=== PATIENT | female | born 1990 | race Caucasian/White ===

== ENCOUNTER → 2018-01-27 | Outpatient (CLI) | payer MEDICAID ==
[~2018-01-27] MED LIST: BIRTH CONTROL PO; CLIN-62 PO; DOXY100C2 PO; HYDR-707 PO; PARO20TA57 PO
--- NOTE | 2018-01-27 11:47 | Diagnostic Imaging Report ---
INDICATION: survey. TECHNIQUE: Multiple real-time grayscale images were obtained over the gravid uterus. COMPARISON: None FINDINGS: There is a single live fetus in a cephalic presentation. The placenta is posterior. The amniotic fluid volume is normal. heart rate was recorded at 152 beats per minute. survey demonstrates kidneys, bladder and stomach to be unremarkable. Intracranial structures are unremarkable. There is a three-vessel cord with normal cord insertion. The spine is unremarkable. Biometrical measurements are as follows: Biparietal 4.4 cm, age 19 weeks 3 days. Head circumference 15.9 cm, age 18 weeks 6 days. Abdominal circumference 14.3 cm, age 19 weeks 5 days. Femur length 3.1 cm, age 19 weeks 4 days. Sonographic estimate age: 19 weeks 3 days. Sonographic estimated date of delivery: 06/20/18. Estimated Weight: 295 gm (+/- 43 gm). LMP percentile: 32%. heart rate: 152 beats per minute. number: 1 of 1. IMPRESSION: Single live IUP approximately 19 weeks 3 days gestational age. The estimated date of confinement sonographically is 06/20/2018. Dictated by: Dictated on workstation # [id number]
== END ==
LOC: RAD 09:46
PROVIDERS: ATTEND Obstetrics & Gynecology
DX: Z36.89 Encounter for other specified antenatal screening (principal); Z3A.19 19 weeks gestation of pregnancy
CPT/HCPCS: 76805

== ENCOUNTER 2018-06-02 20:24 | Inpatient (IN) | payer MEDICAID ==
[~2018-06-02] VITALS: Ht 167.6 cm; Wt 68.9 kg
[2018-06-02] VITALS (13 sets, daily range): BP systolic 124–153; BP diastolic 63–85
[2018-06-02 20:50] LABS: BILIRUBIN,URINE NEGATIVE (NEGATIVE); CLARITY,URINE SLIGHTLY CLOUDY; COLOR,URINE YELLOW; GLUCOSE, URINE (UA) NEGATIVE (NEGATIVE); KETONES,URINE NEGATIVE (NEGATIVE); LEUKOCYTE ESTERASE ,URINE 3+ (NEGATIVE); NITRITE,URINE NEGATIVE (NEGATIVE); PH,URINE 7 (5-9); PROTEIN,URINE NEGATIVE (NEGATIVE); UROBILINOGEN,URINE NORMAL (NORMAL)
[2018-06-02 21:01] LABS: BACTERIA,URINE TRACE /HPF
[2018-06-02] MEDS ORDERED: OXYTOCIN/NORMAL SALINE 500 ML IV ONE (21:19)
[2018-06-02] MEDS ORDERED: LIDOCAINE/EPI 2% 1:200,00 (XYLOCAINE) 10 ML VIAL ONE (21:19)
[2018-06-02] MEDS ORDERED: D5 LR IV SOLUTION 1,000 ML IV ONE (21:19)
[2018-06-02] MEDS ORDERED: D5 LR IV SOLUTION 1,000 ML IV SCH (21:22)
[2018-06-02] MEDS ORDERED: SUFENTA 0.6MCG/ML BUPIVA 0.125 100 ML ONE (21:26)
[2018-06-02 21:48] LABS: BASOPHILS % (AUTO) 0 % (0-10); EOSINOPHILS # (AUTO) 0.1 10^3/uL (0.0-0.3); EOSINOPHILS % (AUTO) 1 % (0-10); HEMATOCRIT 34 % (35-52); HEMOGLOBIN 11.7 G/DL (11.5-16.0); LYMPHOCYTES % (AUTO) 14 % (12-44); MEAN CORPUSCULAR HEMOGLOBIN 31 PG (25-34); MEAN CORPUSCULAR HGB CONC 35 G/DL (32-36); MEAN CORPUSCULAR VOLUME 89 FL (80-99); MEAN PLATELET VOLUME 12.2 FL (7.4-10.4); MONOCYTES # (AUTO) 1.2 X 10^3 (0.0-1.0); MONOCYTES % (AUTO) 8 % (0-12); NEUTROPHILS # (AUTO) 11.3 X 10^3 (1.8-7.8); NEUTROPHILS % (AUTO) 77 % (42-75); PLATELET COUNT 208 10^3/uL (130-400); RED BLOOD COUNT 3.79 10^6/uL (4.35-5.85); RED CELL DISTRIBUTION WIDTH 12.5 % (10.0-14.5); WHITE BLOOD COUNT 14.7 10^3/uL (4.3-11.0)
[2018-06-02] MEDS ORDERED: fentaNYL INJECTION 100 MCG/2 ML AMP ONE (22:00)
[2018-06-02] MEDS ORDERED: LIDOCAINE PF 2% 5 ML (XYLOCAINE) VIAL ONE (22:00)
[2018-06-02] MEDS ORDERED: CATHETER FLUSH 10 ML SYR IV SCH (22:00)
[2018-06-02 22:12] LABS: BAND NEUTROPHILS 13 %; LYMPHOCYTES % (MANUAL) 5 %; NEUTROPHILS % (MANUAL) 81 %; RBC MORPH NORMAL
--- NOTE | 2018-06-02 22:13 | History & Physical-OB ---
OB - Chief Complaint & HPI Date/Time Date of Admission: Date of Admission: 06/02/2018 Time Seen by Provider: 22:30 Chief Complaint/History OB-Reason for Admission/Chief: Onset of Labor Hx : 4 Hx Para: 2 Expected Date of Delivery: Jun 18, 2018 Gestational Age in Weeks: 37 Gestational Age in Days: 5 Admission Nurse Assessment Rev: Yes History of Labs A pos Antibody neg RI RPR NR HBsAg NR HIV NR GC neg GBS neg Allergies and Home Medications Allergies Coded Allergies: No Known Drug Allergies (Verified , 11/11/07) Patient Home Medication List Home Medication List Reviewed: Yes OB - History Hx of Present Care: Yes Ultrasounds: Normal mid trimester US Obstetrical Complications: None Medical Complications: None Obstetrical History Hx : 4 Hx Para: 2 Hx Total # of Abortions (Spona: 1 Delivery History Hx Blood Disorders: No Patient Past Medical History n/a Social History/Family History Recent Infectious Disease Expo: No Immunizations Tetanus Booster (TDap): Less than 5yrs OB - Admission Exam Physical Exam HEENT: NCAT Heart: Rhythm Normal Lungs: Clear Abdomen: Gravid Extremities: Normal Reflexes: Normal Cervical Dilatation: 6cm Effacement: 75% Station: -1 Membranes: Intact Heart Rate: 130's Accelerations: Accelerations Present Decelerations: No Decelerations Short Term Variability: Present Director Strategic Planning Variability: Average (6-25) Contractions on Admission: < 5 Minutes Apart Intensity: Moderate Labs Laboratory Tests Test 06/02/18 20:40 06/02/18 21:35 Range/Units Urine Color YELLOW Urine Clarity SLIGHTLY CLOUDY Urine pH 7 5-9 Urine Specific [place] 1.015 L 1.016-1.022 Urine Protein NEGATIVE NEGATIVE Urine Glucose (UA) NEGATIVE NEGATIVE Urine Ketones NEGATIVE NEGATIVE Urine Nitrite NEGATIVE NEGATIVE Urine Bilirubin NEGATIVE NEGATIVE Urine Urobilinogen NORMAL NORMAL MG/DL Urine Leukocyte Esterase 3+ H NEGATIVE Urine RBC (Auto) 5+ H NEGATIVE Urine RBC 2-5 H /HPF Urine WBC 10-25 H /HPF Urine Squamous Epithelial Cells 2-5 /HPF Urine Crystals NONE /LPF Urine Bacteria TRACE /HPF Urine Casts NONE /LPF Urine Mucus SMALL H /LPF Urine Culture Indicated YES White Blood Count 14.7 H 4.3-11.0 10^3/uL Red Blood Count 3.79 L 4.35-5.85 10^6/uL Hemoglobin 11.7 11.5-16.0 G/DL Hematocrit 34 L 35-52 % Mean Corpuscular Volume 89 80-99 FL Mean Corpuscular Hemoglobin 31 25-34 PG Mean Corpuscular Hemoglobin Concent 35 32-36 G/DL Red Cell Distribution Width 12.5 10.0-14.5 % Platelet Count 208 130-400 10^3/uL Mean Platelet Volume 12.2 H 7.4-10.4 FL Neutrophils (%) (Auto) 77 H 42-75 % Lymphocytes (%) (Auto) 14 12-44 % Monocytes (%) (Auto) 8 0-12 % Eosinophils (%) (Auto) 1 0-10 % Basophils (%) (Auto) 0 0-10 % Neutrophils # (Auto) 11.3 H 1.8-7.8 X 10^3 Lymphocytes # (Auto) 2.0 1.0-4.0 X 10^3 Monocytes # (Auto) 1.2 H 0.0-1.0 X 10^3 Eosinophils # (Auto) 0.1 0.0-0.3 10^3/uL Basophils # (Auto) 0.0 0.0-0.1 10^3/uL OB - Assessment/Plan/Diagnosis Assessment Assessment: active labor Admission Dx 28 yo @ 37.5 Active labor GBS neg Admission Status: Inpatient Order (span 2 midnights) Reason for Inpatient Admission: Active labor term Plan Plan: Expectant Management POLLY ROSALES DO Jun 02, 2018 10:13 pm
[2018-06-02] MEDS ORDERED: LACTATED RINGERS 1,000 ML IV SCH (22:47)
[2018-06-02] MEDS ORDERED: BUPIVACAINE 0.25% 30 ML (SENSORCAINE) VIAL ONE (22:50)
[2018-06-02] MEDS ORDERED: NALOXONE 0.4 MG/ML 1 ML (NARCAN) VIAL IV PRN (23:00)
[2018-06-02] MEDS ORDERED: diphenhydrAMINE 50 MG/ML INJ (BENADRYL) IV PRN (23:00)
[2018-06-02] MEDS ORDERED: EPIDURAL (SUFENTA 0.6MCG/ML BUPIVA 0.125%) 100 ML BAG EPI PRN (23:00)
[2018-06-02] MEDS ORDERED: ONDANSETRON 4 MG/2 ML (SDV) Z0FRAN IV PRN (23:00)
[2018-06-03] VITALS (13 sets, daily range): BP systolic 113–155; BP diastolic 63–93
[2018-06-03] MEDS ORDERED: OXYTOCIN/NORMAL SALINE 500 ML IV SCH (00:07)
--- NOTE | 2018-06-03 00:12 | OB Labor & Delivery Record ---
L&D History Date of Service Date of Service: Jun 03, 2018 History Expected Date of Delivery: Jun 18, 2018 Gestational Age in Weeks: 37 Hx : 4 Hx Para: 2 Complications Events: Routine care Operative Indications (Cesarea: N/A-Vaginal Delivery Intrapartal Events: None L&D Stage1 Stage One Onset of Labor - Date: Jun 02, 2018 Monitors and Tracing Monitor Mode: External Heart Rate: 135 Station: -2 Vital Signs VS - Last 72 Hours, by Label 06/02/18 06/02/18 06/02/18 21:00 22:00 22:45 Temp 98.4 Pulse 82 87 Resp 18 18 18 B/P (MAP) 143/85 (104) 139/82 (101) 136/68 (90) Pulse Ox 98 O2 Delivery Room Air Room Air Room Air Rupture of Membranes Spontaneous Ruture of Membrane: No Amniotic Membrane Rupture Time: 2243 Amniotic Membrane Fluid Desc.: Clear Vaginal Bleeding Description: Normal Show Induction/Anesthesia Epidural Cath Placement - Time: 2234 Progress/Notes progressed without any augmentation other than AROM to complete and + 2 station L&D Stage2 Stage Two Stage II Date: Jun 03, 2018 Monitors and Tracing Monitor Mode: External Heart Rate: 135 Monitor Accelerations: Uniform Monitor Decelerations: Early Transplanter [place]chid Variability: Average (6-10) Short Term Variability: Present Position: Right Occiput Anterior Presentation: Vertex Cord Descript/Complications Cord Vessel Description: 3 Vessels Delivery Type Delivery Method: Spontaneous Vaginal Anterior Shoulder: Left Episiotomy/Perineal Laceration Laceraction(s)/Extensions: Yes Degree (describe repair) bilateral periurethral lacerations repaired using 3-0 rapide in usual fashion Condition of Delivery 1 minute Comment: 9 5 minute Comment: 9 Condition of Infant Condition of : Living Exam: No Observed Abnormalities live male infant weight pending Resuscitation Resuscitation: N/A - Spontaneous Resp L&D Stage3 Stage Three Stage III Date: Jun 03, 2018 Pictocin Pitocin Administration Comment: 30 mu wide open at delivery of placenta Placenta Delivery Placenta Delivery: Spontaneous Delivery Summary Summary Estimated blood loss (mL): 350 Attending at delivery: Polly Rosales DO Condition of Delivery Examined: Cervix Examined, Uterus Explored Post Hemorrhage: No Condition of Mother stable Condition of (s) stable POLLY ROSALES DO Jun 03, 2018 00:12
--- NOTE | 2018-06-03 00:12 | Discharge Inst-Women's Service ---
Discharge Inst-Women's Serv Depart Medication/Instructions New, Converted or Re-Newed RX: RX on Chart Consults/Follow Up Additional Follow Up: Yes Activity Activity: Activity as Tolerated Driving Instructions: No Driving for 1 Week NO SMOKING: NO SMOKING Nothing Inside Vagina: No Douching, No [place], No Tampons Diet Discharge Diet: No Restrictions Symptoms to Report to : Bleeding Excessive, Pain Increased, Fever Over 101 Degrees F, Vaginal Bleeding Increase, Questions/Concerns For Any Problems or Questions: Contact Your Physician Skin/Wound Care Bathing Instructions: POLLY Recio DO Jun 03, 2018 00:12
[2018-06-03] MEDS ORDERED: DOCU100C37 PO (00:14)
[2018-06-03] MEDS ORDERED: PNV1TABL67 PO (00:14)
[2018-06-03] MEDS ORDERED: DIBU30OI TOP (00:14)
[2018-06-03] MEDS ORDERED: IBUP-844 PO (00:14)
[2018-06-03] MEDS ORDERED: ACHD5005 PO (00:14)
[2018-06-03] MEDS ORDERED: DIBUCAINE (NUPERCAINAL) 1% OINT 30 GM TOP PRN (00:15)
[2018-06-03] MEDS ORDERED: BENZOCAINE/MENTHOL (DERMOPLAST) 56 ML CAN TP PRN (00:15)
[2018-06-03] MEDS ORDERED: HYDROcodone/APAP 5 MG/325 MG (LORTAB) TAB PO PRN (00:15)
[2018-06-03] MEDS ORDERED: WITCH HAZEL(TUCKS) 40 EA JAR TOP PRN (00:15)
[2018-06-03] MEDS ORDERED: TETANUS,DIPTH,PERTUSS P/F (BOOSTRIX) 0.5 ML VIAL IM ONE ×2 (00:15→15:31)
[2018-06-03] MEDS ORDERED: MEASLES,MUMPS,RUBELLA 1 EA INJ SQ ONE (00:15)
--- OUTSIDE RECORDS SUMMARY | 2018-06-03 00:42 | XMS REPORT | Continuity of Care Document ---
Author Author [facility] Organization [facility] Address Unknown Phone Unavailable Care Team Providers Care Granite Fabricator Name Role Phone JAS MADISON DO PP Insurance Providers Payer Name Policy Number Subscriber Name Relationship Self Pay Radha Diaz 01 Self / Same As Patient Advance Directives Directive Response Recorded Date Advance Directives N 06/27/13 2:20pm Health Care Power of Airset Molder N 06/27/13 2:20pm Organ Donor Y 06/27/13 2:20pm Problems No Known Problems or Medical conditions. Family History History Response Recorded Date/Time Hx Family Cancer Y GRANDMA, 02/01/11 4: 16pm Hx Family Breast Cancer Y STATES SEVERAL CASES 02/01/11 4:16pm Hx Family Cardiac Disorders N 02/01/11 4: 16pm Social History History Response Recorded Date/Time Alcohol Use Denies Use 06/27/13 2:20pm Recreational Drug Use Y POT 06/27/13 2: 20pm Allergies, Adverse Reactions, Alerts Allergen Type Severity Reaction Last Updated No Known Drug Allergies 11/11/07 Medications Medication Dose Units Route Sig Qty Days No Active Prescriptions or Reported Medications Doxycycline Hyclate 1 Each PO BID 6 Acetaminophen/Hydrocodone Bitart (Lortab 5-500 Tablet) 1 - 2 Each PO Q6HR PRN Response Recorded Date/Time Status not known Unknown Results Test Date Result Interp. Ref. Range Acetaminophen Screen June 03, 2009 11:40am NEGATIVE - BUN/Creatinine Ratio February 23, 2012 6:23am 10 - Band Neutrophils February 22, 2012 2:24am 6 % - Basophils # (Auto) February 23, 2012 6:23am 0.0 10^3/uL N 0.0-0.1 Basophils (%) (Auto) February 23, 2012 6:23am 0 % N 0-10 Blood Urea Nitrogen February 23, 2012 6:23am 5 MG/DL L 7-18 C-Reactive Protein February 03, 2011 6:17am 1.0 MG/DL H 0.2-0.9 Calcium Level February 23, 2012 6:23am 7.9 MG/DL L 8.5-10.1 Carbon Dioxide Level February 23, 2012 6:23am 22 MMOL/L N 21-32 Chlamydia DNA Probe February 22, 2012 5:25am NEG - Chlamydia/GC DNA Probe Source February 22, 2012 5:25am CERVIX - Chloride Level February 23, 2012 6:23am 102 MMOL/L N 101-110 Creatinine February 23, 2012 6:23am 0.5 MG/ DL L 0.6-1.3 Eosinophils # (Auto) February 23, 2012 6:23am 0.2 10^3/uL N 0.0-0.3 Eosinophils (%) (Auto) February 23, 2012 6:23am 1 % N 0-10 Erythrocyte Sedimentation Rate February 01, 2011 1:15pm 11 MM/HR N 0-20 Fasting Glucose May 18, 2009 10:27am 420 81 - Glucose 1 Hour May 18, 2009 10:27am 4380 184 - Glucose 1/2 Hour May 18, 2009 10:27am 2700 176 - Glucose 2 Hour May 18, 2009 10:27am 7680 159 - Glucose 3 Hour May 18, 2009 10:27am 87358 57 - Glucose Level February 23, 2012 6:23am 65 MG/DL L 74-106 Hematocrit February 23, 2012 6:23am 27 % L 35-52 Hemoglobin February 23, 2012 6:23am 9.1 G/ DL L 11.5-16.0 Human Chorionic Gonadotropin, Quant February 22, 2012 2:24am 46167 MIU/ML H -6 Lymphocytes # (Auto) February 23, 2012 6:23am 1.6 X 10^3 N 1.0-4.0 Lymphocytes % (Manual) February 22, 2012 2:24am 3 % - Lymphocytes (%) (Auto) February 23, 2012 6:23am 11 % L 12-44 Mean Corpuscular Hemoglobin February 23, 2012 6:23am 29 PG N 25-34 Mean Corpuscular Hemoglobin Concent February 23, 2012 6:23am 34 G/DL N 32-36 Mean Corpuscular Volume February 23, 2012 6:23am 88 FL N 80-99 Mean Platelet Volume February 23, 2012 6:23am 11.4 FL H 7.4-10.4 Monocytes # (Auto) February 23, 2012 6:23am 0.5 X 10^3 N 0.0-1.0 Monocytes % (Manual) February 22, 2012 2:24am 7 % - Monocytes (%) (Auto) February 23, 2012 6:23am 4 % N 0-12 Neisseria gonorrhoeae DNA Probe February 22, 2012 5:25am NEG - Neutrophils # (Auto) February 23, 2012 6:23am 11.9 X 10^3 H 1.8-7.8 Neutrophils % (Manual) February 22, 2012 2:24am 84 % - Neutrophils (%) (Auto) February 23, 2012 6:23am 84 % H 42-75 Platelet Count February 23, 2012 6:23am 206 10^3/uL N 130-400 Potassium Level February 23, 2012 6:23am 3.4 MMOL/L L 3.6-5.0 Red Blood Count February 23, 2012 6:23am 3.11 10^6/uL L 4.35-5.85 Red Cell Distribution Width February 23, 2012 6:23am 14.6 % H 10.0-14.5 Sodium Level February 23, 2012 6:23am 134 MMOL/L L 135-145 Ur Tricyclic Antidepressants Screen June 03, 2009 11:40am NEGATIVE - Urine Amphetamines Screen June 03, 2009 11:40am NEGATIVE - Urine Bacteria August 08, 2012 1:20pm TRACE - Urine Barbiturates Screen June 03, 2009 11:40am NEGATIVE - Urine Benzodiazepines Screen June 03, 2009 11:40am NEGATIVE - Urine Bilirubin August 08, 2012 1:20pm NEGATIVE - Urine Casts August 08, 2012 1:20pm NONE - Urine Clarity August 08, 2012 1:20pm CLEAR - Urine Cocaine Screen June 03, 2009 11:40am NEGATIVE - Urine Color August 08, 2012 1:20pm YELLOW - Urine Crystals August 08, 2012 1:20pm NONE - Urine Culture Indicated August 08, 2012 1:20pm NO - Urine Glucose (UA) August 08, 2012 1:20pm NEGATIVE - Urine Ketones August 08, 2012 1:20pm NEGATIVE - Urine Leukocyte Esterase August 08, 2012 1:20pm NEGATIVE - Urine Methamphetamines Screen June 03, 2009 11:40am NEGATIVE - Urine Mucus August 08, 2012 1:20pm NEGATIVE - Urine Nitrite August 08, 2012 1:20pm NEGATIVE - Urine Opiates Screen June 03, 2009 11:40am NEGATIVE - Urine Phencyclidine Screen June 03, 2009 11:40am NEGATIVE - Urine Protein August 08, 2012 1:20pm NEGATIVE - Urine RBC August 08, 2012 1:20pm RARE /HPF - Urine Specific [place] August 08, 2012 1:20pm 1.010 L - Urine Squamous Epithelial Cells August 08, 2012 1:20pm 2-5 - Urine Urobilinogen August 08, 2012 1:20pm NORMAL MG/DL - Urine WBC August 08, 2012 1:20pm 0-2 /HPF - Urine pH August 08, 2012 1:20pm 7.0 - White Blood Count February 23, 2012 6:23am 14.2 10^3/uL H 4.3-11.0 Estimat Glomerular Filtration Rate February 22, 2012 2:24am > 60 - Blood Morphology Comment February 22, 2012 2:24am NORMAL - Urine Methadone Screen June 03, 2009 11:40am NEGATIVE - Urine Cannabinoids Screen June 03, 2009 11:40am POSITIVE H - Urine RBC (Auto) August 08, 2012 1:20pm 4+ H - Procedures Procedure Code Date EPISIOTOMY 73.6 11/11/07 OTHER INSTILLATION 96.49 11/10/07 MANUAL ASSIST DELIV NEC 73.59 06/03/09 DRAINAGE OF SKIN ABSCESS 44872 02/01/11 TREATMENT OF MISCARRIAGE 74681 02/22/12 Blood Culture 02/01/11 Gram Stain 02/01/11 Encounters Encounter Location Date/Time Registered Emergency Room [facility] 06/27/13 2:14pm Departed Emergency Room [facility] 07/11 1:12pm Discharged Inpatient [facility] 5:21am Pre-admitted Inpatient [facility] 08/17 10:24am
[2018-06-03] MEDS: IBUPROFEN 600 MG (MOTRIN) TAB PO SCH ×4 (04:28→21:08)
[2018-06-03] MEDS ORDERED: CATHETER FLUSH 10 ML SYR IV SCH (06:00)
--- NOTE | 2018-06-03 07:47 | Anesthesia-Regional Post-Op ---
Regional Patient Condition Mental Status: Alert, Oriented x3 Circulation: Same as Pre-Op Headache: Absent Sensation: Full Recovery Motor Block: Absent Post Op Complications Complications None Follow Up Care/Instructions Patient Instructions None needed. Anesthesia/Patient Condition Patient is doing well, no complaints, stable vital signs, no apparent adverse anesthesia problems. No complications reported per nursing. [place] [facility] [place]: No FRANK WEBBER CRNA Jun 03, 2018 07:47
[2018-06-03] MEDS: PRENATAL VITAMIN 1 EA TAB PO SCH (09:21)
[2018-06-03] MEDS: FERROUS SULF 325 MG (IRON) TAB PO SCH (09:21)
[2018-06-03] MEDS: DOCUSATE SODIUM 100 MG (COLACE) CAP PO SCH ×2 (09:21→21:08)
--- NOTE | 2018-06-03 22:22 | Postpartum Progress Note ---
Note Note Day #1 Subjective: Patient is without complaints. Ambulating, voiding. Tolerating a regular diet without nausea or vomiting. Normal lochia. Pain is well controlled with oral pain medications. [ Objective: Vital Sign - Last 24 Hours 06/02/18 06/02/18 06/02/18 06/02/18 22:45 22:48 22:52 22:55 Pulse 87 94 93 89 Resp 18 18 B/P (MAP) 136/68 (90) 153/70 (97) 151/72 (98) 148/71 (96) Pulse Ox 98 97 98 98 O2 Delivery Room Air Room Air Room Air Room Air 06/02/18 06/02/18 06/02/18 06/02/18 22:58 23:00 23:05 23:10 Pulse 87 85 92 83 Resp 18 B/P (MAP) 140/70 (93) 127/63 (84) 124/74 (91) 139/74 (95) Pulse Ox 99 99 98 98 O2 Delivery Room Air Room Air Room Air Room Air 06/02/18 06/02/18 06/02/18 06/03/18 23:15 23:30 23:49 00:05 Temp 98.2 Pulse 86 93 102 97 Resp 18 B/P (MAP) 141/72 (95) 142/65 (90) 134/82 (99) 155/83 (107) Pulse Ox 98 98 98 97 O2 Delivery Room Air Room Air Room Air Room Air 06/03/18 06/03/18 06/03/18 06/03/18 00:20 00:35 00:50 01:05 Temp 98.0 98.1 98.2 98.2 Pulse 89 86 83 86 Resp 18 18 B/P (MAP) 147/68 (94) 145/93 (110) 147/65 (92) 137/63 (87) Pulse Ox 98 98 98 O2 Delivery Room Air Room Air Room Air Room Air 06/03/18 06/03/18 06/03/18 06/03/18 02:30 03:00 03:30 04:00 Pulse 73 73 74 91 Resp 18 18 18 B/P (MAP) 136/71 (92) 127/65 (85) 123/67 (85) 113/79 (90) O2 Delivery Room Air Room Air Room Air Room Air 06/03/18 06/03/18 06/03/18 09:00 12:00 16:00 Temp 98.0 97.8 98.0 Pulse 73 68 65 Resp 18 18 18 B/P (MAP) 125/71 (89) 119/72 (88) 131/72 (91) Pulse Ox 97 97 98 O2 Delivery Room Air Room Air Room Air Physical Exam: General - Alert and oriented, no apparent distress Abdomen - Soft, appropriately tender to palpation, non-distended, fundus firm at umbilicus Extremities - no edema, negative Gina's bilaterally Assessment: PPD 1 NVD Plan: Routine care. Encourage breast feeding. Encourage ambulation. Ferrous sulfate supplementation. Plan for discharge tomorrow Vitals - Labs Vital Signs - I&O Vital Signs Date Time Temp Pulse Resp B/P (MAP) Pulse Ox O2 Delivery O2 Flow Rate FiO2 06/03/18 16:00 98.0 65 18 131/72 (91) 98 Room Air 06/03/18 12:00 97.8 68 18 119/72 (88) 97 Room Air 06/03/18 09:00 98.0 73 18 125/71 (89) 97 Room Air 06/03/18 04:00 91 18 113/79 (90) Room Air 06/03/18 03:30 74 18 123/67 (85) Room Air 06/03/18 03:00 73 18 127/65 (85) Room Air 06/03/18 02:30 73 18 136/71 (92) Room Air 06/03/18 01:05 98.2 86 18 137/63 (87) Room Air 06/03/18 00:50 98.2 83 18 147/65 (92) 98 Room Air 06/03/18 00:35 98.1 86 18 145/93 (110) 98 Room Air 06/03/18 00:20 98.0 89 18 147/68 (94) 98 Room Air 06/03/18 00:05 98.2 97 18 155/83 (107) 97 Room Air 06/02/18 23:49 102 18 134/82 (99) 98 Room Air 06/02/18 23:30 93 18 142/65 (90) 98 Room Air 06/02/18 23:15 86 18 141/72 (95) 98 Room Air 06/02/18 23:10 83 18 139/74 (95) 98 Room Air 06/02/18 23:05 92 18 124/74 (91) 98 Room Air 06/02/18 23:00 85 18 127/63 (84) 99 Room Air 06/02/18 22:58 87 18 140/70 (93) 99 Room Air 06/02/18 22:55 89 18 148/71 (96) 98 Room Air 06/02/18 22:52 93 18 151/72 (98) 98 Room Air 06/02/18 22:48 94 18 153/70 (97) 97 Room Air 06/02/18 22:45 87 18 136/68 (90) 98 Room Air Labs Microbiology 06/02/18 Urine Culture - Preliminary, Resulted Sent To POLLY Solis DO Jun 03, 2018 10:22 pm
[2018-06-04 03:04] VITALS: BP 128/79
[2018-06-04] MEDS: IBUPROFEN 600 MG (MOTRIN) TAB PO SCH ×2 (03:04→09:25)
[2018-06-04 06:37] LABS: BASOPHILS % (AUTO) 0 % (0-10); EOSINOPHILS # (AUTO) 0.2 10^3/uL (0.0-0.3); EOSINOPHILS % (AUTO) 2 % (0-10); HEMATOCRIT 33 % (35-52); HEMOGLOBIN 11.4 G/DL (11.5-16.0); LYMPHOCYTES # (AUTO) 2.1 X 10^3 (1.0-4.0); LYMPHOCYTES % (AUTO) 19 % (12-44); MEAN CORPUSCULAR HEMOGLOBIN 31 PG (25-34); MEAN CORPUSCULAR HGB CONC 35 G/DL (32-36); MEAN CORPUSCULAR VOLUME 89 FL (80-99); MEAN PLATELET VOLUME 12.3 FL (7.4-10.4); MONOCYTES # (AUTO) 0.9 X 10^3 (0.0-1.0); MONOCYTES % (AUTO) 8 % (0-12); NEUTROPHILS # (AUTO) 7.8 X 10^3 (1.8-7.8); NEUTROPHILS % (AUTO) 71 % (42-75); PLATELET COUNT 173 10^3/uL (130-400); RED BLOOD COUNT 3.69 10^6/uL (4.35-5.85); RED CELL DISTRIBUTION WIDTH 12.5 % (10.0-14.5)
--- NOTE | 2018-06-04 07:30 | Postpartum Progress Note ---
Note Note Day # 2 Subjective: Patient is without complaints. Ambulating, voiding. Tolerating a regular diet without nausea or vomiting. Normal lochia. Pain is well controlled with oral pain medications. Objective: Vital Sign - Last 24 Hours 06/03/18 06/03/18 06/03/18 06/03/18 09:00 12:00 16:00 20:30 Temp 98.0 97.8 98.0 97.7 Pulse 73 68 65 64 Resp 18 18 18 18 B/P (MAP) 125/71 (89) 119/72 (88) 131/72 (91) 122/78 (93) Pulse Ox 97 97 98 97 O2 Delivery Room Air Room Air Room Air Room Air 06/04/18 03:04 Temp 97.0 Pulse 56 Resp 18 B/P (MAP) 128/79 (95) Pulse Ox 97 O2 Delivery Room Air Physical Exam: General - Alert and oriented, no apparent distress Abdomen - Soft, appropriately tender to palpation, non-distended, fundus firm at umbilicus Extremities - no edema, negative Gina's bilaterally Assessment: PPD 2 NVD Plan: Routine care. Encourage breast feeding. Encourage ambulation. Ferrous sulfate supplementation. Plan for discharge today Vitals - Labs Vital Signs - I&O Vital Signs Date Time Temp Pulse Resp B/P (MAP) Pulse Ox O2 Delivery O2 Flow Rate FiO2 06/04/18 03:04 97.0 56 18 128/79 (95) 97 Room Air 06/03/18 20:30 97.7 64 18 122/78 (93) 97 Room Air 06/03/18 16:00 98.0 65 18 131/72 (91) 98 Room Air 06/03/18 12:00 97.8 68 18 119/72 (88) 97 Room Air 06/03/18 09:00 98.0 73 18 125/71 (89) 97 Room Air Labs Laboratory Tests 06/04/18 06:25: White Blood Count 11.0, Red Blood Count 3.69L, Hemoglobin 11.4L, Hematocrit 33L , Mean Corpuscular Volume 89, Mean Corpuscular Hemoglobin 31, Mean Corpuscular Hemoglobin Concent 35, Red Cell Distribution Width 12.5, Platelet Count 173, Mean Platelet Volume 12.3H, Neutrophils (%) (Auto) 71, Lymphocytes (%) (Auto) 19 , Monocytes (%) (Auto) 8, Eosinophils (%) (Auto) 2, Basophils (%) (Auto) 0, Neutrophils # (Auto) 7.8, Lymphocytes # (Auto) 2.1, Monocytes # (Auto) 0.9, Eosinophils # (Auto) 0.2, Basophils # (Auto) 0.0 Microbiology 06/02/18 Urine Culture - Preliminary, Resulted Sent To POLLY Solis DO Jun 04, 2018 7:30 am
[2018-06-04 09:23] VITALS: BP 129/81
[2018-06-04] MEDS: DOCUSATE SODIUM 100 MG (COLACE) CAP PO SCH (09:24)
[2018-06-04] MEDS: PRENATAL VITAMIN 1 EA TAB PO SCH (09:24)
[2018-06-04] MEDS: FERROUS SULF 325 MG (IRON) TAB PO SCH (09:24)
== END 2018-06-04 15:20 | disposition home or self-care (01) | DRG 775 ==
LOC: WSo 20:24 → LDRP 20:24 → WSo 22:00 → LDRP 22:01
PROVIDERS: ADMIT Obstetrics & Gynecology; ATTEND Obstetrics & Gynecology
PROC: 10E0XZZ Delivery of Products of Conception, External Approach (ICD-10-PCS; principal; 2018-06-03)
PROC: 0UQMXZZ Repair Vulva, External Approach (ICD-10-PCS; 2018-06-03)
DX: O71.82 Other specified trauma to perineum and vulva (principal); Z37.0 Single live birth; Z3A.37 37 weeks gestation of pregnancy; Z23 Encounter for immunization
CPT/HCPCS: 36415; 81000; 85007; 85025; 85027; 86850; 86900; 86901; 87088; 90715; 99212

== ENCOUNTER 2020-04-09 13:04 | Emergency (ER) | payer SELFPAY ==
[~2020-04-09] VITALS: Ht 170.2 cm; Wt 67.2 kg
[~2020-04-09 13:04] MED LIST changes: +ACHD5005 PO; +DIBU30OI TOP; +DOCU100C37 PO; +IBUP-844 PO; +PNV1TABL67 PO
[2020-04-09 13:10] VITALS: BP 147/85
[2020-04-09] MEDS ORDERED: LIDOCAINE/EPI 2% 1:100,00 (XYLOCAINE) 20 ML VIAL ONE (13:23)
[2020-04-09] MEDS ORDERED: LIDOCAINE/EPI 1%-1:100,000 (XYLOCAINE) 20ML INJ ONE (13:30)
[2020-04-09] MEDS ORDERED: SULF1TAB35 PO (13:32)
--- NOTE | 2020-04-09 13:33 | ED Integumentary General ---
General Chief Complaint: Skin/Wound Problems Stated Complaint: ABCESS Source: patient Exam Limitations: no limitations History of Present Illness Date Seen by Provider: Apr 09, 2020 Time Seen by Provider: 13:19 Initial Comments Here with abscess to the right side of the face. This is been going on for a few days. She's had this previously and had to have I&D done. She went to the clinic today and they did not want to cut on the face so she left there and came here. She is not currently on antibiotics. History of staph infection although on known if this was MRSA. Tetanus is up-to-date. Timing/Duration: getting worse, other (few days) Severity: moderate Location: face Possible Cause: no cause identified Associated Symptoms: change in skin texture, edema, swelling/mass/lumps Allergies and Home Medications Allergies Coded Allergies: No Known Drug Allergies (Verified , 11/11/07) Home Medications Dibucaine 30 Gm Oint, 0 GM TOP UD PRN for PAIN- SEE INSTRUCTIONS Prescribed by: POLLY ROSALES on 06/03/1813 Docusate Sodium 100 Mg Capsule, 100 MG PO BID PRN for CONSTIPATION-1ST LINE Prescribed by: POLLY ROSALES on 06/03/1813 Hydrocodone Bit/Acetaminophen 1 Tab Tab, 1-2 TAB PO Q4H PRN for PAIN-MODERATE Prescribed by: POLLY ROSALES on 06/03/1813 Ibuprofen 600 Mg Tablet, 600 MG PO Q6H Prescribed by: POLLY ROSALES on 06/03/1813 Pnv with Ca,No.72/Iron/FA 1 Each Tablet, 1 EA PO DAILY@0700 Prescribed by: POLLY ROSALES on 06/03/1813 Patient Home Medication List Home Medication List Reviewed: Yes Review of Systems Review of Systems Constitutional: see HPI; No chills, No fever Respiratory: no symptoms reported Cardiovascular: no symptoms reported Skin: see HPI, change in color, lesions Past Jnrgzro-Pqdvpk-Ydpvrw Hx Past Med/Social Hx: Reviewed Nursing Past Med/Soc Hx Patient Social History Alcohol Use: Denies Use Recreational Drug Use: Yes (occasional THC) Smoking Status: Never a Smoker Recent Foreign Travel: No Contact w/Someone Who Travel: No Recent Hopitalizations: No Immunizations Up To Date Tetanus Booster (TDap): Less than 5yrs PED Vaccines UTD: Yes Seasonal Allergies Seasonal Allergies: No Past Medical History Surgeries: Yes (previous I&D on the face) Respiratory: No Cardiac: No Neurological: No Reproductive Disorders: No Genitourinary: No Gastrointestinal: No Musculoskeletal: No Endocrine: No HEENT: No Cancer: No Psychosocial: Yes Bipolar Integumentary: No Blood Disorders: No Adverse Reaction/Blood Tranf: No Family Medical History Reviewed Nursing Family Hx Patient reports no known family medical history. Physical Exam Vital Signs Capillary Refill : General Appearance: WD/WN, no apparent distress HEENT: PERRL/EOMI, TMs normal Neck: full range of motion, supple Cardiovascular: regular rate, rhythm, no murmur Respiratory: lungs clear, no accessory muscle use Skin: warm/dry Skin Problem Location: face Skin Problem Character: abscess (right cheek lateral to the lip. 1.5 x 1.5 cm area of a flocculence surrounded by erythema) Lymphatic: no adenopathy Procedures/Interventions I&D : Blade Size: 10 I & D Procedure: betadine prep Packing/Drain: Plain Packing 1/2 Progress 1 cm incision over wound after local anesthesia with 2% lidocaine with epinephrine approximately 5 mL. Wound thoroughly flushed and packed with half- inch plain packing. Tolerated procedure well with no complications. Covered with Band-Aid afterwards. Progress/Results/Core Measures Results/Orders My Orders Orders - FAWAD MCNEIL MD Lidocaine/Epi 1% 1:100,000 (Xylocaine /E (04/09/20 13:30) Progress Progress Note : Progress Note Seen and evaluated. I&D right face. Discharged home with return precautions. Patient verbalize understanding instructions and agreement with plan. Departure Impression Primary Impression: Facial abscess Disposition: HOME, SELF-CARE Condition: Improved Departure-Patient Inst. Decision time for Depature: 13:31 Referrals: JAS MADISON DO (PCP/Family) Primary Care Physician Patient Instructions: Abscess Incision and Drainage (DC) Add. Discharge Instructions: All discharge instructions reviewed with patient and/or family. Voiced understanding. Keep wound clean and for the most part dry. It is okay to shower. Replaced Band- Aid as it becomes soiled. Keep packing in place for 2 days and you may return Thursday for packing removal or wound check. If packing comes out, that is okay. Just continue to clean it twice daily by gently rinsing with fresh water. May cover with a Band-Aid afterwards. After packing is removed, you may use a little bit of antibiotic ointment in the area once or twice daily to continue to promote healing. Take medications as directed. You may take ibuprofen up to 800 mg every 8 hours as needed for pain. Take your first dose when you get home. You may also take Tylenol/acetaminophen 1000 mg every 8 hours as needed for pain return for worse pain, fever, swelling or other concerns as needed. Scripts Sulfamethoxazole/Trimethoprim (Bactrim Ds Tablet) 1 Each Tablet 1 EACH PO BID, #14 TAB 0 Refills Prov: FAWAD MCNEIL MD 04/09/20 Work/School Note: Work Release Form Date Seen in the Emergency Department: Apr 09, 2020 Return to Work: Apr 10, 2020 Restrictions: No Restrictions FAWAD MCNEIL MD Apr 09, 2020 13:33
--- OUTSIDE RECORDS SUMMARY | 2020-04-09 15:20 | XMS REPORT | Continuity of Care Document ---
Author Organization Unknown Address Unknown Phone Unavailable Allergies Active Description Code Type Severity Reaction Onset Reported/Identified Relationship to Patient Clinical Status Yes No Known Drug Allergies [id number] Drug Allergy Unknown N/A 11/11/2007 Medications There is no data. Problems Date Dx Coded Attending Type Code Diagnosis Diagnosed By 01/28/2018 POLLY ROSALES DO S Ot Z36.89 ENCOUNTER FOR OTHER SPECIFIED 01/28/2018 FENECH DOPOLLY S Ot Z3A.19 19 WEEKS GESTATION OF 03/25/2018 FENECH DOPOLLY S Ot Z36.89 ENCOUNTER FOR OTHER SPECIFIED 03/25/2018 FENECH DOPOLLY S Ot Z3A.19 19 WEEKS GESTATION OF 03/25/2018 FENECH DOPOLLY S Ot Z36.89 ENCOUNTER FOR OTHER SPECIFIED 03/25/2018 FENECH DOPOLLY S Ot Z3A.19 19 WEEKS GESTATION OF 03/29/2018 FENECH DOPOLLY S Ot Z36.89 ENCOUNTER FOR OTHER SPECIFIED 03/29/2018 FENECH DOPOLLY S Ot Z3A.19 19 WEEKS GESTATION OF 03/29/2018 FENECH DOPOLLY S Ot Z36.89 ENCOUNTER FOR OTHER SPECIFIED 03/29/2018 FENECH DOPOLLY S Ot Z3A.19 19 WEEKS GESTATION OF 04/01/2018 FENECH DOPOLLY S Ot Z36.89 ENCOUNTER FOR OTHER SPECIFIED 04/01/2018 FENECH DO, POLLY S Ot Z3A.19 19 WEEKS GESTATION OF 04/12/2018 FENECH DOPOLLY S Ot Z36.89 ENCOUNTER FOR OTHER SPECIFIED 04/12/2018 FENECH DOPOLLY S Ot Z3A.19 19 WEEKS GESTATION OF 06/04/2018 POLLY ROSALES DO S Ot O71.82 OTHER SPECIFIED TRAUMA TO PERINEUM AND V 06/04/2018 POLLY ROSALES DO S Ot Z2 3 ENCOUNTER FOR IMMUNIZATION 06/04/2018 POLLY ROSALES DO S Ot Z37.0 SINGLE LIVE 06/04/2018 POLLY ROSALES DO S Ot Z3A.37 37 WEEKS GESTATION OF Procedures Code Description Performed By Per formed On 0UQMXZZ RE PAIR VULVA, EXTERNAL APPROACH 06/03/2018 80L1WYS DE LIVERY OF PRODUCTS OF CONCEPTION, EXTE 06/03/2018 Results Test Result Range Complete urinalysis with reflex to cultu re - 06/02/18 20:40 Urine color determination YELLOW NRG Urine clarity determination SLIGHTLY CLOUDY NRG Urine pH measurement by test strip 7 5-9 Specific gravity of urine by test strip 1.015 1.016-1.022 Urine protein assay by test strip, semi-quantitative NEGATIVE NEGATIVE Urine glucose detection by automated test strip NE GATIVE NEGATIVE Erythrocytes detection in urine sediment by light micr oscopy 5+ NEGATIVE Urine ketones detection by automated test strip NE GATIVE NEGATIVE Urine nitrite detection by test strip NEGATIVE NEGATIVE Urine total bilirubin detection by test strip NEGA TIVE NEGATIVE Urine urobilinogen measurement by automated test strip (mass/volume) NORMAL NORMAL Urine leukocyte esterase detection by dipstick 3+ NEGATIVE Automated urine sediment erythrocyte cou nt by microscopy (number/high power field) [HPF] NRG Automated urine sediment leukocyte count by microscopy (number/high power field) [HPF] NRG Bacteria detection in urine sediment by light microsco py TRACE NRG Squamous epithelial cells detection in u rine sediment by light microscopy 2-5 NRG Crystals detection in urine sediment by light microsco py NONE NRG Casts detection in urine sediment by light microscopy NONE NRG Mucus detection in urine sediment by light microscopy SMALL NRG Complete urinalysis with reflex to culture YES NRG Bacterial urine culture - 06/02/18 20:40 Bacterial urine culture SEE COMMEN NRG COLONY COUNT . NRG Complete blood count (CBC) with automate d white blood cell (WBC) differential - 06/02/18 21:35 Blood leukocytes automated count (number/volume) 14.7 10*3/uL 4.3-11.0 Blood erythrocytes automated count (number/volume) 3.79 10*6/uL 4.35-5.85 Venous blood hemoglobin measurement (mass/volume) 11.7 g/dL 11.5-16.0 Blood hematocrit (volume fraction) 34 % 35-52 Automated erythrocyte mean corpuscular volume 89 [ foz_us] 80-99 Automated erythrocyte mean corpuscular h emoglobin (mass per erythrocyte) 31 pg 25-34 Automated erythrocyte mean corpuscular h emoglobin concentration measurement (mass/volume) 35 g/dL 32-36 Automated erythrocyte distribution width ratio 12. 5 % 10.0- 14.5 Automated blood platelet count (count/volume) 208 10*3/uL 130-400 Automated blood platelet mean volume measurement 12.2 [foz_us] 7.4-10.4 Automated blood neutrophils/100 leukocytes 77 % 42-75 Automated blood lymphocytes/100 leukocytes 14 % 12-44 Blood monocytes/100 leukocytes 8 % 0-12 Automated blood eosinophils/100 leukocytes 1 % 0-10 Automated blood basophils/100 leukocytes 0 % 0-10 Blood neutrophils automated count (number/volume) 11.3 10*3 1.8-7.8 Blood lymphocytes automated count (number/volume) 2.0 10*3 1.0-4.0 Blood monocytes automated count (number/volume) 1. 2 10*3 0.0-1.0 Automated eosinophil count 0.1 10*3/uL 0 .0-0.3 Automated blood basophil count (count/volume) 0.0 10*3/uL 0.0-0.1 Blood type T Indirect antibody screen pa francia - 06/02/18 21:35 ABO+Rh group AP NRG Transfusion band number [id number] NRG Blood group antibody screen NEGATIVE NR G Blood manual differential performed dete ction - 06/02/18 21:35 Manual blood segmented neutrophils/100 leukocytes 81 % NRG Blood band neutrophils/100 leukocytes 13 % NRG Manual blood lymphocytes/100 leukocytes 5 % NRG Blood erythrocyte morphology finding identification NORMAL NRG Complete blood count (CBC) with automate d white blood cell (WBC) differential - 06/04/18 06:25 Blood leukocytes automated count (number/volume) 11.0 10*3/uL 4.3-11.0 Blood erythrocytes automated count (number/volume) 3.69 10*6/uL 4.35-5.85 Venous blood hemoglobin measurement (mass/volume) 11.4 g/dL 11.5-16.0 Blood hematocrit (volume fraction) 33 % 35-52 Automated erythrocyte mean corpuscular volume 89 [ foz_us] 80-99 Automated erythrocyte mean corpuscular h emoglobin (mass per erythrocyte) 31 pg 25-34 Automated erythrocyte mean corpuscular h emoglobin concentration measurement (mass/volume) 35 g/dL 32-36 Automated erythrocyte distribution width ratio 12. 5 % 10.0- 14.5 Automated blood platelet count (count/volume) 173 10*3/uL 130-400 Automated blood platelet mean volume measurement 12.3 [foz_us] 7.4-10.4 Automated blood neutrophils/100 leukocytes 71 % 42-75 Automated blood lymphocytes/100 leukocytes 19 % 12-44 Blood monocytes/100 leukocytes 8 % 0-12 Automated blood eosinophils/100 leukocytes 2 % 0-10 Automated blood basophils/100 leukocytes 0 % 0-10 Blood neutrophils automated count (number/volume) 7.8 10*3 1.8-7.8 Blood lymphocytes automated count (number/volume) 2.1 10*3 1.0-4.0 Blood monocytes automated count (number/volume) 0. 9 10*3 0.0-1.0 Automated eosinophil count 0.2 10*3/uL 0 .0-0.3 Automated blood basophil count (count/volume) 0.0 10*3/uL 0.0-0.1 Encounters ACCT No. Visit Date/Time Discharge Status Pt. Type Provider Facility Loc./Unit Complaint [id number] 04/09/2020 13:06:00 020 14:02:00 DIS Emergency FAWAD MCNEIL MD [facility] ER ABCESS [id number] 06/02/2018 22:01:00 018 15:20:00 DIS Outpatient POLLY ROSALES DO S [facility] LDRP LABOR [id number] 01/27/2018 09:46:00 018 23:59:59 CLS Outpatient POLLY ROSALES DO S [facility] RAD Z33.1 [id number] 06/27/2013 14:14:00 013 16:53:00 DIS Emergency
--- OUTSIDE RECORDS SUMMARY | 2020-04-09 15:20 | XMS REPORT ---
Author Author Nuha MADISON [facility] Address [address] [place] [address] Care Team Providers Care Hone Operator Name Role Phone JAS MADISON Unavailable PROBLEMS Type Condition ICD9-CM Code LWA96-MR Code Onset Dates Condition S tatus SNOMED Code Problem Complete spontaneous without mention of compl ication 634.92 Active 592422600 Problem Irregular menstrual cycle 626.4 Acti ve 87437400 Problem Screening for malignant neoplasm of the cervix V76.2 Active 218135844 Problem Screening examination for venereal disease V74.5 Active 646906123 Problem Other general counseling and advice for contrace ptive management V25.09 Active 363542146 ALLERGIES No Information ENCOUNTERS Encounter Location Date Diagnosis [facility] [address] [id number] [address] [place] [phone] 10 Feb, 2017 Muscle strain of left upper back, initial encounter S29.012A [facility] [address] [facility] [id number] [address] [place] [phone] 30 Feb, 2012 [facility] [address] [facility] [id number] [address] [place] [phone] Feb, [facility] [address] [id number] [address] [place] [phone] Feb, [facility] [address] [id number] [address] [place] [phone] Feb, [facility] [address] [facility] [id number] [address] [place] [phone] Sep, [facility] [address] [facility] [id number] [address] [place] [phone] Sep, [facility] [address] [facility] [id number] [address] [place] [phone] Sep, [facility] [address] [facility] [id number] [address] [place] [phone] Sep, [facility] [address] [facility] [id number] [address] [place] [phone] Sep, [facility] [address] [facility] [id number] [address] [place] [phone] Apr, IMMUNIZATIONS No Known Immunizations SOCIAL HISTORY Never Assessed REASON FOR VISIT PLAN OF CARE VITAL SIGNS MEDICATIONS No Known Medications RESULTS No Results PROCEDURES No Known procedures INSTRUCTIONS MEDICATIONS ADMINISTERED No Known Medications
--- OUTSIDE RECORDS SUMMARY | 2020-04-09 15:20 | XMS REPORT ---
Author Author Nuha Murdock Doctor Organization [facility] Address Unknown Phone Unavailable Care Team Providers Care Transformer Repairer Name Role Phone Migration, Doctor Unavailable Unavailable PROBLEMS Type Condition ICD9-CM Code PEL76-MC Code Onset Dates Condition S tatus SNOMED Code Problem Complete spontaneous without mention of compl ication 634.92 Active 792992943 Problem Irregular menstrual cycle 626.4 Acti ve 09125851 Problem Screening for malignant neoplasm of the cervix V76.2 Active 662661797 Problem Screening examination for venereal disease V74.5 Active 774579388 Problem Other general counseling and advice for contrace ptive management V25.09 Active 121811427 ALLERGIES No Information ENCOUNTERS Encounter Location Date Diagnosis [facility] [address] [id number] [address] [place] [phone] Feb, Muscle strain of left upper back, initial encounter S29.012A [facility] [address] [id number] [address] [place] [phone] Feb, [facility] [address] [id number] [address] [place] [phone] Feb, [facility] [address] [id number] [address] [place] [phone] Feb, [facility] [address] [id number] [address] [place] [phone] Feb, [facility] [address] [id number] [address] [place] [phone] Sep, [facility] [address] [id number] [address] [place] [phone] Sep, [facility] [address] [id number] [address] [place] [phone] Sep, [facility] [address] [id number] [address] [place] [phone] Sep, [facility] [address] [facility] [id number] [address] [place] [phone] Sep, [facility] [address] [facility] [id number] [address] [place] [phone] Apr, IMMUNIZATIONS No Known Immunizations SOCIAL HISTORY Never Assessed REASON FOR V[place]IT [place] [place] VITAL SIGNS MEDICATIONS No Known Medications RESULTS No Results PROCEDURES No Known procedures INSTRUCTIONS MEDICATIONS ADMINISTERED No Known Medications
== END 2020-04-09 14:02 | disposition home or self-care (01) ==
LOC: EDUNIT# 13:04 → ER 13:06
DX: L02.01 Cutaneous abscess of face (principal)
CPT/HCPCS: 87070; 87205; 99282

== ENCOUNTER 2020-04-11 14:27 | Emergency (ER) | payer SELFPAY ==
[~2020-04-11] VITALS: Ht 167 cm; Wt 67.2 kg
[~2020-04-11 14:27] MED LIST changes: +SULF1TAB35 PO
--- NOTE | 2020-04-11 14:51 | ED Suture Removal/Wound Check ---
Suture/Wound Re-check Suture Removal/Wound Recheck : Suture Removal/Wound Recheck: Packing removed Progress Here with needed wound check. Had I&D 2 days ago and small wick placed to the area on the face lateral to the lip on the right. Wound is much better with pain much better. No fever. Taking antibiotics as directed. No concerns. General Appearance: WD/WN, no apparent distress Skin Exam: normal color, warm/dry, other (wound is clean and dry. Packing removed. Much decreased erythema without significant drainage.) Physical Exam Vital Signs Capillary Refill : General Appearance: WD/WN, no apparent distress Departure Impression Primary Impression: Encounter for wound re-check Disposition: HOME, SELF-CARE Condition: Improved Departure-Patient Inst. Decision time for Depature: 14:49 Referrals: JAS MADISON DO (PCP/Family) Primary Care Physician Patient Instructions: Wound Care (DC) Add. Discharge Instructions: Continue wound care as discussed. You may use antibiotic ointment and Band-Aid over wound for the next few days and then as needed. Gently wash and rinse wound twice daily. Continue antibiotics as prescribed. Return for worse pain, swelling, fever, increasing redness or other concerns as needed. FAWAD MCNEIL MD Apr 11, 2020 14:50
[2020-04-11 14:53] VITALS: BP 112/66
--- OUTSIDE RECORDS SUMMARY | 2020-04-11 18:17 | XMS REPORT | Continuity of Care Document ---
Author Organization Unknown Address Unknown Phone Unavailable Allergies Active Description Code Type Severity Reaction Onset Reported/Identified Relationship to Patient Clinical Status Yes No Known Drug Allergies [id number] Drug Allergy Unknown N/A 11/11/2007 Medications There is no data. Problems Date Dx Coded Attending Type Code Diagnosis Diagnosed By 01/28/2018 POLLY ROSALES DO S Ot Z36.89 ENCOUNTER FOR OTHER SPECIFIED 01/28/2018 FENECH DOPOLLY S Ot Z3A.19 19 WEEKS GESTATION OF 03/25/2018 RONNIEECH DOPOLLY S Ot Z36.89 ENCOUNTER FOR OTHER [...] Z36.89 ENCOUNTER FOR OTHER SPECIFIED 04/01/2018 FENECH DOPOLLY S Ot Z3A.19 19 WEEKS GESTATION OF 04/12/2018 FENECH DOPOLLY S Ot Z36.89 ENCOUNTER FOR OTHER SPECIFIED 04/12/2018 FENECH DOPOLLY S Ot Z3A.19 19 WEEKS GESTATION OF 06/04/2018 RONNIEECH POLLY SAHU S Ot O71.82 OTHER SPECIFIED TRAUMA TO PERINEUM AND V 06/04/2018 RONNIEECH POLLY SAHU S Ot Z2 3 ENCOUNTER FOR IMMUNIZATION 06/04/2018 RONNIEECH POLLY SAHU S Ot Z37.0 SINGLE LIVE 06/04/2018 CONNIE DOPOLLY S Ot Z3A.37 37 WEEKS GESTATION OF 04/09/2020 EWA AVELAR, FAWAD Gann Ot L02.01 CUTANEOUS ABSCESS OF FACE 04/11/2020 FAWAD MCNEIL MD Ot L02.01 CUTANEOUS ABSCESS OF FACE Procedures Code Description Performed By Per formed On 0UQMXZZ RE PAIR VULVA, EXTERNAL APPROACH 06/03/2018 84Z9NNK DE LIVERY OF PRODUCTS OF CONCEPTION, EXTE [...] ABO+Rh group AP NRG Transfusion band number [id number] NRG Blood group antibody screen NEGATIVE NR [...] blood basophil count (count/volume) 0.0 10*3/uL 0.0-0.1 Gram stain microscopy - 04/09/20 13:40 Gram stain microscopy Rare Gram positive cocci in clusters NRG Bacteria identification in wound by cult ure - 04/09/20 13:40 Bacteria identification in wound by culture [id number] NRG QUANTITY OF GROWTH Isolated NRG SUSCEPTIBILITY NO BETA STREP, STAPH AUREUS, NRG MRSA SCREEN OR PSEUDOMONAS ISOLATED NRG Encounters ACCT No. Visit Date/Time Discharge Status Pt. Type Provider Facility Loc./Unit Complaint [id number] 04/09/2020 12:30:00 ACT Outpatient JOSEP LAC, [facility] [id number] 04/11/2020 14:29:00 14:55:00 DIS Emergency FAWAD MCNEIL MD [facility] ER WOUND CHECK [id number] 04/09/2020 13:06:00 14:02:00 DIS Emergency FWAAD MCNEIL MD [facility] ER ABCESS [id number] 06/02/2018 22:01:00 018 15:20:00 DIS Outpatient POLLY ROSALES DO [facility] LDRP LABOR [id number] 01/27/2018 09:46:00 018 23:59:59 CLS Outpatient POLLY ROSALES DO [facility] RAD Z33.1 [id number] 06/27/2013 14:14:00 013 16:53:00 DIS Emergency
== END 2020-04-11 14:55 | disposition home or self-care (01) ==
LOC: EDUNIT# 14:27 → ER 14:29
DX: Z48.817 Encounter for surgical aftercare following surgery on the skin and subcutaneous tissue (principal); K13.0 Diseases of lips

== ENCOUNTER → 2021-03-20 | Outpatient (CLI) | payer MEDICAID ==
--- NOTE | 2021-03-20 11:31 | Diagnostic Imaging Report ---
INDICATION: Assessment during normal TECHNIQUE: Multiple real-time grayscale images were obtained over the gravid uterus. COMPARISON: None FINDINGS: A single viable) currently in a breech presentation. Normal amount of amniotic fluid appears to be present. The placenta is posterior without previa. Cervical length at that 4.7 cm and unremarkable. Maternal adnexa not visualized. Visualized anatomical structures including the kidneys, bladder, stomach, intracranial structures, four-chamber heart, three-vessel cord and insertion site as well as spine are unremarkable. Biometrical measurements are as follows: Biparietal 5.58 cm, age 23 weeks 1 days. Head circumference 20.72 cm, age 22 weeks 6 days. Abdominal circumference 19.68 cm, age 24 weeks 3 days. Femur length 4.13 cm, age 23 weeks 3 days. Sonographic estimate age: 23 weeks 4 days. Sonographic estimated date of delivery: 07/13/2021. Estimated Weight: 629 gm (+/- 92 gm). LMP percentile: 90%. heart rate: 140 beats per minute. number: 1 of 1. IMPRESSION: 1. Single currently in a breech presentation. Sonographic estimated age 23 weeks 4 days for an estimated date of delivery 07/13/2021. No abnormalities demonstrated at this time. Dictated by: Dictated on workstation # [id number]
== END ==
LOC: RAD 09:52
PROVIDERS: ATTEND Obstetrics & Gynecology
DX: Z34.02 Encounter for supervision of normal first pregnancy, second trimester (principal); Z3A.23 23 weeks gestation of pregnancy
CPT/HCPCS: 76805

== ENCOUNTER 2021-04-20 19:17 | Outpatient (CLI) | payer MEDICAID ==
[~2021-04-20] VITALS: Ht 167.7 cm; Wt 77.0 kg
[~2021-04-20 19:17] MED LIST changes: +NITR-65 PO; +PREN-37 PO
[2021-04-20 19:31] VITALS: BP 129/71
[2021-04-20 19:49] LABS: BILIRUBIN,URINE NEGATIVE (NEGATIVE); CLARITY,URINE SL CLOUDY; COLOR,URINE YELLOW; GLUCOSE, URINE (UA) NEGATIVE (NEGATIVE); KETONES,URINE 2+ (NEGATIVE); LEUKOCYTE ESTERASE ,URINE NEGATIVE (NEGATIVE); NITRITE,URINE NEGATIVE (NEGATIVE); PROTEIN,URINE NEGATIVE (NEGATIVE)
[2021-04-20 19:56] LABS: BACTERIA,URINE FEW /HPF; WBC,URINE 0-2 /HPF
[2021-04-20 19:57] LABS: RBC,URINE 0-2 /HPF
[2021-04-20] MEDS ORDERED: morphine INJ 10 MG/ML 1ML (SYR OR VIAL) IVP STA (20:10)
[2021-04-20] MEDS ORDERED: NS IV 500 ML 500 ML IV ONE (20:15)
[2021-04-20] MEDS ORDERED: ceFAZolin INJECTION 1,000 MG in WATER (STERILE) FOR INJECTION 10 ML IV ONE (20:15)
[2021-04-20 20:35] LABS: BASOPHILS % (AUTO) 0 % (0-10); EOSINOPHILS % (AUTO) 0 % (0-10); HEMATOCRIT 33 % (35-52); HEMOGLOBIN 11.3 g/dL (11.5-16.0); LYMPHOCYTES # (AUTO) 1.2 10^3/uL (1.0-4.0); LYMPHOCYTES % (AUTO) 9 % (12-44); MEAN CORPUSCULAR HEMOGLOBIN 31 pg (25-34); MEAN CORPUSCULAR HGB CONC 34 g/dL (32-36); MEAN CORPUSCULAR VOLUME 90 fL (80-99); MEAN PLATELET VOLUME 11.2 fL (9.0-12.2); MONOCYTES # (AUTO) 0.5 10^3/uL (0.0-1.0); MONOCYTES % (AUTO) 4 % (0-12); NEUTROPHILS # (AUTO) 12.1 10^3/uL (1.8-7.8); NEUTROPHILS % (AUTO) 87 % (42-75); PLATELET COUNT 254 10^3/uL (130-400); WHITE BLOOD COUNT 13.9 10^3/uL (4.3-11.0)
[2021-04-20 20:47] LABS: ALBUMIN 3.7 GM/DL (3.2-4.5)
[2021-04-20 20:48] LABS: CHLORIDE 104 MMOL/L (98-107); POTASSIUM 3.9 MMOL/L (3.6-5.0); SODIUM 136 MMOL/L (135-145)
[2021-04-20 20:50] LABS: GLUCOSE 116 MG/DL (70-105); TOTAL PROTEIN 7.3 GM/DL (6.4-8.2)
[2021-04-20 20:51] LABS: CARBON DIOXIDE 18 MMOL/L (21-32)
[2021-04-20 20:52] LABS: BILIRUBIN,TOTAL 0.3 MG/DL (0.1-1.0)
[2021-04-20 20:53] LABS: ALKALINE PHOSPHATASE 94 U/L (40-136)
[2021-04-20 20:54] LABS: CREATININE SERUM 0.63 MG/DL (0.60-1.30); GFR ESTIMATED > 60
[2021-04-20 20:55] LABS: BAND NEUTROPHILS 1 %; BASOPHILS % (MANUAL) 0 %; BUN/CREATININE RATIO 16; EOSINOPHILS % (MANUAL) 1 %; LYMPHOCYTES % (MANUAL) 3 %; MONOCYTES % (MANUAL) 3 %; NEUTROPHILS % (MANUAL) 92 %; RBC MORPH NORMAL
[2021-04-20] MEDS: D5 LR IV SOLUTION 1,000 ML IV SCH (20:56)
[2021-04-20 20:57] LABS: ALANINE AMINOTRANSFERASE 13 U/L (0-55)
[2021-04-20] MEDS: morphine INJ 10 MG/ML 1ML (SYR OR VIAL) IVP PRN (22:58)
[2021-04-21] MEDS ORDERED: ONDANSETRON 4 MG/2 ML (SDV) Z0FRAN IVP PRN (03:15)
[2021-04-21 03:20] VITALS: BP 124/66
[2021-04-21] MEDS: morphine INJ 10 MG/ML 1ML (SYR OR VIAL) IVP PRN (03:26)
[2021-04-21] MEDS: D5 LR IV SOLUTION 1,000 ML IV SCH (03:27)
[2021-04-21 08:36] VITALS: BP 114/72
[2021-04-21] MEDS ORDERED: CEPH500T PO (08:49)
--- NOTE | 2021-04-21 09:00 | History & Physical-OB ---
OB - Chief Complaint & HPI Date/Time Date of Admission: Date of Admission: Date seen by a Provider: Apr 21, 2021 Time Seen by a Provider: 08:40 Chief Complaint/History OB-Reason for Admission/Chief: Hx : 4 Hx Para: 2 Expected Date of Delivery: Jul 19, 2021 Gestational Age in Weeks: 27 Gestational Age in Days: 1 Other reason for admission: Patient admitted for urothelial pain s/p nephrolithiasis. SHe had hematuria on ua. She denies contractions or concerns. Admission Nurse Assessment Rev: Yes History of Labs Laboratory Tests Test 04/20/21 19:25 04/20/21 20:15 Range/Units Urine Color YELLOW Urine Clarity SL CLOUDY Urine pH 6.0 5-9 Urine Specific [place] >=1.030 1.016-1.022 Urine Protein NEGATIVE NEGATIVE Urine Glucose (UA) NEGATIVE NEGATIVE Urine Ketones 2+ H NEGATIVE Urine Nitrite NEGATIVE NEGATIVE Urine Bilirubin NEGATIVE NEGATIVE Urine Urobilinogen 0.2 < = 1.0 MG/DL Urine Leukocyte Esterase NEGATIVE NEGATIVE Urine RBC (Auto) 2+ H NEGATIVE Urine RBC 0-2 /HPF Urine WBC 0-2 /HPF Urine Squamous Epithelial Cells 5-10 /HPF Urine Crystals NONE /LPF Urine Bacteria FEW H /HPF Urine Casts NONE /LPF Urine Mucus SMALL H /LPF Urine Culture Indicated YES White Blood Count 13.9 H 4.3-11.0 10^3/uL Red Blood Count 3.68 L 3.80-5.11 10^6/uL Hemoglobin 11.3 L 11.5-16.0 g/dL Hematocrit 33 L 35-52 % Mean Corpuscular Volume 90 80-99 fL Mean Corpuscular Hemoglobin 31 25-34 pg Mean Corpuscular Hemoglobin Concent 34 32-36 g/dL Red Cell Distribution Width 12.4 10.0-14.5 % Platelet Count 254 130-400 10^3/uL Mean Platelet Volume 11.2 9.0-12.2 fL Immature Granulocyte % (Auto) 0 % Neutrophils (%) (Auto) 87 H 42-75 % Lymphocytes (%) (Auto) 9 L 12-44 % Monocytes (%) (Auto) 4 0-12 % Eosinophils (%) (Auto) 0 0-10 % Basophils (%) (Auto) 0 0-10 % Neutrophils # (Auto) 12.1 H 1.8-7.8 10^3/uL Lymphocytes # (Auto) 1.2 1.0-4.0 10^3/uL Monocytes # (Auto) 0.5 0.0-1.0 10^3/uL Eosinophils # (Auto) 0.0 0.0-0.3 10^3/uL Basophils # (Auto) 0.0 0.0-0.1 10^3/uL Immature Granulocyte # (Auto) 0.1 0.0-0.1 10^3/uL Neutrophils % (Manual) 92 % Lymphocytes % (Manual) 3 % Monocytes % (Manual) 3 % Eosinophils % (Manual) 1 % Basophils % (Manual) 0 % Band Neutrophils 1 % Blood Morphology Comment NORMAL Sodium Level 136 135-145 MMOL/L Potassium Level 3.9 3.6-5.0 MMOL/L Chloride Level 104 98-107 MMOL/L Carbon Dioxide Level 18 L 21-32 MMOL/L Anion Gap 14 5-14 MMOL/L Blood Urea Nitrogen 10 7-18 MG/DL Creatinine 0.63 0.60-1.30 MG/DL Estimat Glomerular Filtration Rate > 60 BUN/Creatinine Ratio 16 Glucose Level 116 H 70-105 MG/DL Calcium Level 10.0 8.5-10.1 MG/DL Corrected Calcium 10.2 H 8.5-10.1 MG/DL Total Bilirubin 0.3 0.1-1.0 MG/DL Aspartate Amino Transf (AST/SGOT) 14 5-34 U/L Alanine Aminotransferase (ALT/SGPT) 13 0-55 U/L Alkaline Phosphatase 94 40-136 U/L Total Protein 7.3 6.4-8.2 GM/DL Albumin 3.7 3.2-4.5 GM/DL Allergies and Home Medications Allergies Coded Allergies: No Known Drug Allergies (Verified , 11/11/07) Home Medications Cephalexin 500 Mg Tablet, 500 MG PO QID Prescribed by: LINDA ARIZA on 04/21/21 0849 Vit/Iron Fumarate/FA 1 Each Tablet, 1 EACH PO DAILY, (Reported) Last Action: Reviewed Patient Home Medication List Home Medication List Reviewed: Yes OB - History Hx of Present Care: Yes Ultrasounds: Normal mid trimester US Obstetrical Complications: None Medical Complications: None Obstetrical History Hx : 4 Hx Para: 2 Hx Total # of Abortions (Spona: 1 Delivery History Hx Blood Disorders: No Adverse Rxn to Tranfusion: No Patient Past Medical History n/a Social History/Family History Alcohol Use: Denies Use Recreational Drug Use: Yes 2nd Hand Smoke Exposure: No Immunizations Hepatitis A: Yes Hepatitis B: Yes Tetanus Booster (TDap): Less than 5yrs OB - Admission Exam Physical Exam Vitals: Vital Signs 04/21/21 08:36 Temp 36.4 Pulse 82 Resp 18 B/P (MAP) 114/72 (86) Pulse Ox 98 O2 Delivery Room Air HEENT: NCAT Heart: Rhythm Normal Lungs: Clear Abdomen: Other (mild CVA tenderness, and suprapubic tenderness) Extremities: Normal Reflexes: Normal Cervical Dilatation: None Heart Rate: 130's Accelerations: Accelerations Present Decelerations: No Decelerations Short Term Variability: Present Administrative Services Assistant Variability: Average (6-25) Contractions on Admission: >10 Minutes Apart Intensity: Mild Labs Laboratory Tests Test 04/20/21 19:25 04/20/21 20:15 Range/Units Urine Color YELLOW Urine Clarity SL CLOUDY Urine pH 6.0 5-9 Urine Specific [place] >=1.030 1.016-1.022 Urine Protein NEGATIVE NEGATIVE Urine Glucose (UA) NEGATIVE NEGATIVE Urine Ketones 2+ H NEGATIVE Urine Nitrite NEGATIVE NEGATIVE Urine Bilirubin NEGATIVE NEGATIVE Urine Urobilinogen 0.2 < = 1.0 MG/DL Urine Leukocyte Esterase NEGATIVE NEGATIVE Urine RBC (Auto) 2+ H NEGATIVE Urine RBC 0-2 /HPF Urine WBC 0-2 /HPF Urine Squamous Epithelial Cells 5-10 /HPF Urine Crystals NONE /LPF Urine Bacteria FEW H /HPF Urine Casts NONE /LPF Urine Mucus SMALL H /LPF Urine Culture Indicated YES White Blood Count 13.9 H 4.3-11.0 10^3/uL Red Blood Count 3.68 L 3.80-5.11 10^6/uL Hemoglobin 11.3 L 11.5-16.0 g/dL Hematocrit 33 L 35-52 % Mean Corpuscular Volume 90 80-99 fL Mean Corpuscular Hemoglobin 31 25-34 pg Mean Corpuscular Hemoglobin Concent 34 32-36 g/dL Red Cell Distribution Width 12.4 10.0-14.5 % Platelet Count 254 130-400 10^3/uL Mean Platelet Volume 11.2 9.0-12.2 fL Immature Granulocyte % (Auto) 0 % Neutrophils (%) (Auto) 87 H 42-75 % Lymphocytes (%) (Auto) 9 L 12-44 % Monocytes (%) (Auto) 4 0-12 % Eosinophils (%) (Auto) 0 0-10 % Basophils (%) (Auto) 0 0-10 % Neutrophils # (Auto) 12.1 H 1.8-7.8 10^3/uL Lymphocytes # (Auto) 1.2 1.0-4.0 10^3/uL Monocytes # (Auto) 0.5 0.0-1.0 10^3/uL Eosinophils # (Auto) 0.0 0.0-0.3 10^3/uL Basophils # (Auto) 0.0 0.0-0.1 10^3/uL Immature Granulocyte # (Auto) 0.1 0.0-0.1 10^3/uL Neutrophils % (Manual) 92 % Lymphocytes % (Manual) 3 % Monocytes % (Manual) 3 % Eosinophils % (Manual) 1 % Basophils % (Manual) 0 % Band Neutrophils 1 % Blood Morphology Comment NORMAL Sodium Level 136 135-145 MMOL/L Potassium Level 3.9 3.6-5.0 MMOL/L Chloride Level 104 98-107 MMOL/L Carbon Dioxide Level 18 L 21-32 MMOL/L Anion Gap 14 5-14 MMOL/L Blood Urea Nitrogen 10 7-18 MG/DL Creatinine 0.63 0.60-1.30 MG/DL Estimat Glomerular Filtration Rate > 60 BUN/Creatinine Ratio 16 Glucose Level 116 H 70-105 MG/DL Calcium Level 10.0 8.5-10.1 MG/DL Corrected Calcium 10.2 H 8.5-10.1 MG/DL Total Bilirubin 0.3 0.1-1.0 MG/DL Aspartate Amino Transf (AST/SGOT) 14 5-34 U/L Alanine Aminotransferase (ALT/SGPT) 13 0-55 U/L Alkaline Phosphatase 94 40-136 U/L Total Protein 7.3 6.4-8.2 GM/DL Albumin 3.7 3.2-4.5 GM/DL OB - Assessment/Plan/Diagnosis Assessment Assessment: other Admission Dx Diagnosis: 31 yo @ 27 weeks gestation Urothelial pain- ureterospasms secondary to nephrolithisasis Hematuria P: Pain control done overnight- patient is doing much better this am after Morphine and IVF administration Will dc home today with pyelonephrosis precautions and starting on Keflex 500 qid x 7 days. PTL precautions reviewed. Admission Status: Observation POLLY ROSALES DO Apr 21, 2021 09:00
== END 2021-04-21 09:02 | disposition home or self-care (01) ==
LOC: LDRP 19:17 → WSo 19:17
PROVIDERS: ATTEND Obstetrics & Gynecology
DX: O26.899 Other specified pregnancy related conditions, unspecified trimester (principal); Z3A.27 27 weeks gestation of pregnancy
CPT/HCPCS: 36415; 80053; 81000; 85007; 85027; 87088; 96361; 96374; 96375; 96376

== ENCOUNTER 2021-05-06 19:59 | Outpatient (CLI) | payer MEDICAID ==
[~2021-05-06] VITALS: Ht 160 cm; Wt 78.7 kg
[~2021-05-06 19:59] MED LIST changes: +CEPH500T PO
[2021-05-06 20:23] VITALS: BP 133/66
[2021-05-06 20:38] LABS: BILIRUBIN,URINE NEGATIVE (NEGATIVE); CLARITY,URINE CLOUDY; COLOR,URINE YELLOW; GLUCOSE, URINE (UA) NEGATIVE (NEGATIVE); KETONES,URINE NEGATIVE (NEGATIVE); LEUKOCYTE ESTERASE ,URINE NEGATIVE (NEGATIVE); NITRITE,URINE NEGATIVE (NEGATIVE); PROTEIN,URINE TRACE (NEGATIVE)
[2021-05-06 20:53] LABS: RBC,URINE >100 /HPF; WBC,URINE 0-2 /HPF
[2021-05-06 20:54] LABS: BACTERIA,URINE TRACE /HPF; CALCIUM OXALATE CRYSTALS,UR FEW /LPF
[2021-05-06] MEDS ORDERED: morphine INJ 10 MG/ML 1ML (SYR OR VIAL) IVP PRN (21:30)
[2021-05-06] MEDS ORDERED: ONDANSETRON 4 MG/2 ML (SDV) Z0FRAN IVP PRN (21:30)
[2021-05-06] MEDS ORDERED: NS IV 1000 ML 1,000 ML IV SCH (21:30)
[2021-05-06] MEDS ORDERED: ceFAZolin INJECTION 1,000 MG in WATER (STERILE) FOR INJECTION 10 ML IV ONE (21:30)
[2021-05-06] MEDS ORDERED: ceFAZolin INJECTION 1,000 MG ONE (21:34)
[2021-05-06] MEDS ORDERED: WATER (STERILE) FOR INJECTION 10 ML ONE (21:34)
[2021-05-06] MEDS ORDERED: ONDANSETRON 4 MG/2 ML (SDV) Z0FRAN ONE (21:34)
[2021-05-06] MEDS ORDERED: NS IV 1000 ML 1,000 ML ONE (21:34)
[2021-05-06] MEDS ORDERED: D5 LR IV SOLUTION 1,000 ML IV ONE (21:34)
[2021-05-06] MEDS ORDERED: morphine INJ 10 MG/ML 1ML (SYR OR VIAL) ONE (21:41)
[2021-05-06] MEDS: D5 LR IV SOLUTION 1,000 ML IV SCH (22:54)
[2021-05-06 22:56] VITALS: BP 118/62
[2021-05-07] MEDS: D5 LR IV SOLUTION 1,000 ML IV SCH (06:50)
[2021-05-07 08:35] VITALS: BP 136/60
[2021-05-07] MEDS ORDERED: CEPH500T PO (08:50)
--- NOTE | 2021-05-07 08:53 | History & Physical-OB ---
OB - Chief Complaint & HPI Date/Time Date of Admission: Date of Admission: Date seen by a Provider: May 07, 2021 Time Seen by a Provider: 08:10 Chief Complaint/History OB-Reason for Admission/Chief: Hx : 5 Hx Para: 3 Expected Date of Delivery: Jul 19, 2021 Gestational Age in Weeks: 29 Gestational Age in Days: 3 Other reason for admission: Patient with known history of nephrolithiasis admitted last night with severe flank pain and blood in urine. Admission Nurse Assessment Rev: Yes Allergies and Home Medications Allergies Coded Allergies: No Known Drug Allergies (Verified , 11/11/07) Home Medications Vit/Iron Fumarate/FA 1 Each Tablet, 1 EACH PO DAILY, (Reported) Last Action: Reviewed Patient Home Medication List Home Medication List Reviewed: Yes OB - History Hx of Present Care: Yes Ultrasounds: Normal mid trimester US Obstetrical Complications: None Medical Complications: Other (Nephrolithiasis) Obstetrical History Hx : 5 Hx Para: 3 Hx Total # of Abortions (Spona: 1 Delivery History Hx Blood Disorders: No Adverse Rxn to Tranfusion: No Patient Past Medical History n/a Social History/Family History Alcohol Use: Denies Use Recreational Drug Use: Yes 2nd Hand Smoke Exposure: No Immunizations Hepatitis A: Yes Hepatitis B: Yes Tetanus Booster (TDap): Less than 5yrs OB - Admission Exam Physical Exam Vitals: Vital Signs 05/06/21 22:56 Temp 36.1 Pulse 74 Resp 18 B/P (MAP) 118/62 (80) Pulse Ox 97 O2 Delivery Room Air HEENT: NCAT Heart: Rhythm Normal Lungs: Clear Abdomen: Gravid Extremities: Normal Reflexes: Normal Heart Rate: 130's Accelerations: Accelerations Present Decelerations: No Decelerations Line Director Variability: Average (6-25) Contractions on Admission: None Labs Laboratory Tests Test 05/06/21 20:10 Range/Units Urine Color YELLOW Urine Clarity CLOUDY Urine pH 6.0 5-9 Urine Specific [place] >=1.030 1.016-1.022 Urine Protein TRACE H NEGATIVE Urine Glucose (UA) NEGATIVE NEGATIVE Urine Ketones NEGATIVE NEGATIVE Urine Nitrite NEGATIVE NEGATIVE Urine Bilirubin NEGATIVE NEGATIVE Urine Urobilinogen 0.2 < = 1.0 MG/DL Urine Leukocyte Esterase NEGATIVE NEGATIVE Urine RBC (Auto) 3+ H NEGATIVE Urine RBC >100 H /HPF Urine WBC 0-2 /HPF Urine Crystals PRESENT H /LPF Urine Calcium Oxalate Crystals FEW H /LPF Urine Bacteria TRACE /HPF Urine Casts NONE /LPF Urine Mucus SMALL H /LPF Urine Culture Indicated NO OB - Assessment/Plan/Diagnosis Assessment Admission Dx Diagnosis: 31 yo @ 29.4 Flank pain with nephrolithiasis- resolved this AM after IVF hydration and pain meds Hematuria P: IVF hydration given Ancef x 1 dose, will be followed by Keflex for 7 days Pain meds as needed Pending US results will plan for dc this am as pain has improved. Admission Status: Observation POLLY ROSALES DO May 07, 2021 8:53 am
--- NOTE | 2021-05-07 09:46 | Diagnostic Imaging Report ---
PROCEDURE: US Renal/Bladder. TECHNIQUE: Multiple real-time grayscale images were obtained over the kidneys in various projections bilaterally. INDICATION: Left-sided flank pain. COMPARISON: 04/15/2021 FINDINGS: Right: The right kidney measures 13.5 cm in length. Renal cortical thickness and echogenicity are within normal limits. There is improving right-sided hydronephrosis compared to the prior exam from 04/15/2021. A calculus is noted within the proximal ureter on the right which appears to have migrated since the prior exams. Left: The left kidney measures 11.9 cm in length. Renal cortical thickness and echogenicity are within normal limits. The previously visualized nonobstructing calculus in the left kidney is not well seen on today's exam. There is no evidence of solid focal mass or hydronephrosis. No perinephric fluid collections are identified. There is no abdominal ascites. Intrauterine gestation is partially visualized. Views of the pelvis demonstrate a moderately distended urinary bladder. The left ureteral jet is visualized. The right ureteral jet is not seen. No large intraluminal filling defect or calculi are identified. IMPRESSION: 1. Improving right-sided hydronephrosis. There has been migration of a previously nonobstructive calculus which now appears to reside within the proximal right ureter. Recommend follow-up as indicated. 2. No hydronephrosis on the left. Dictated by: Dictated on workstation # [id number]
== END 2021-05-07 09:10 | disposition home or self-care (01) ==
LOC: LDRP 19:59 → WSo 19:59
PROVIDERS: ATTEND Obstetrics & Gynecology
DX: O26.893 Other specified pregnancy related conditions, third trimester (principal); N13.30 Unspecified hydronephrosis; Z3A.29 29 weeks gestation of pregnancy
CPT/HCPCS: 76770; 81000; 96361 ×2; 96374; 96375; G0378; G0379; 99211

== ENCOUNTER 2021-07-17 07:56 | Inpatient (IN) | payer MEDICAID ==
[2021-07-17] VITALS (16 sets, daily range): BP systolic 114–141; BP diastolic 52–85
[~2021-07-17 07:56] MED LIST changes: +ACET-93 PO; +DOCU-143 PO; +OXYC5TAB PO; +PROM25TA14 PO; -SULF1TAB35 PO; +SULF1TAB38 PO; +TMSL.4C PO
[2021-07-17] MEDS ORDERED: MINERAL OIL CONCENTRATE 99.9% 15 ML UDC TOP PRN (08:30)
[2021-07-17] MEDS ORDERED: D5 LR IV SOLUTION 1,000 ML IV SCH (08:30)
[2021-07-17 08:36] LABS: BASOPHILS # (AUTO) 0.1 10^3/uL (0.0-0.1); BASOPHILS % (AUTO) 0 % (0-10); BILIRUBIN,URINE NEGATIVE (NEGATIVE); CLARITY,URINE CLEAR; COLOR,URINE YELLOW; EOSINOPHILS # (AUTO) 0.1 10^3/uL (0.0-0.3); EOSINOPHILS % (AUTO) 1 % (0-10); GLUCOSE, URINE (UA) NEGATIVE (NEGATIVE); HEMATOCRIT 35 % (35-52); HEMOGLOBIN 11.2 g/dL (11.5-16.0); KETONES,URINE NEGATIVE (NEGATIVE); LEUKOCYTE ESTERASE ,URINE TRACE (NEGATIVE); LYMPHOCYTES # (AUTO) 2.4 10^3/uL (1.0-4.0); LYMPHOCYTES % (AUTO) 17 % (12-44); MEAN CORPUSCULAR HEMOGLOBIN 28 pg (25-34); MEAN CORPUSCULAR HGB CONC 33 g/dL (32-36); MEAN CORPUSCULAR VOLUME 86 fL (80-99); MEAN PLATELET VOLUME 12.8 fL (9.0-12.2); MONOCYTES # (AUTO) 0.9 10^3/uL (0.0-1.0); MONOCYTES % (AUTO) 6 % (0-12); NEUTROPHILS # (AUTO) 10.5 10^3/uL (1.8-7.8); NEUTROPHILS % (AUTO) 75 % (42-75); NITRITE,URINE NEGATIVE (NEGATIVE); PLATELET COUNT 238 10^3/uL (130-400); PROTEIN,URINE NEGATIVE (NEGATIVE); WHITE BLOOD COUNT 14.1 10^3/uL (4.3-11.0)
[2021-07-17 08:57] LABS: AMORPHOUS SEDIMENT,UR MOD AMOR PHOSPHATE /LPF; BACTERIA,URINE MODERATE /HPF
[2021-07-17 09:01] LABS: LYMPHOCYTES % (MANUAL) 25 %; MONOCYTES % (MANUAL) 5 %; NEUTROPHILS % (MANUAL) 70 %; RBC MORPH NORMAL
[2021-07-17] MEDS ORDERED: LIDOCAINE/EPI 2% 1:200,00 (XYLOCAINE) 20 ML VIAL ONE (09:10)
[2021-07-17] MEDS: OXYTOCIN PRE-MIX DRIP 500 ML IV SCH ×2 (09:11→09:57)
[2021-07-17] MEDS ORDERED: MEASLES,MUMPS,RUBELLA 1 EA INJ SQ ONE (09:30)
[2021-07-17] MEDS ORDERED: BENZOCAINE/MENTHOL (DERMOPLAST) 56 ML CAN TP PRN (09:30)
[2021-07-17] MEDS ORDERED: NALOXONE 0.4 MG/ML 1 ML (NARCAN) VIAL IV PRN (09:30)
[2021-07-17] MEDS ORDERED: WITCH HAZEL(TUCKS) 40 EA JAR TOP PRN (09:30)
[2021-07-17] MEDS ORDERED: HYDROcodone/APAP 5 MG/325 MG (LORTAB) TAB PO PRN (09:30)
[2021-07-17] MEDS ORDERED: DIBUCAINE 1% OINTMENT 30 GM TUBE TOP PRN (09:30)
[2021-07-17] MEDS ORDERED: TETANUS,DIPTH,PERTUSS P/F (BOOSTRIX) 0.5 ML VIAL IM ONE (09:30)
--- NOTE | 2021-07-17 09:47 | History & Physical-OB ---
OB - Chief Complaint & HPI Date/Time Date of Admission: Date of Admission: Jul 17, 2021 at 8:09 am Date seen by a Provider: Jul 17, 2021 Time Seen by a Provider: 07:45 Chief Complaint/History OB-Reason for Admission/Chief: Onset of Labor Hx : 6 Hx Para: 4 Expected Date of Delivery: Jul 19, 2021 Gestational Age in Weeks: 39 Gestational Age in Days: 5 Admission Nurse Assessment Rev: Yes History of Labs GBS neg Allergies and Home Medications Allergies Coded Allergies: No Known Drug Allergies (Verified , 11/11/07) Patient Home Medication List Home Medication List Reviewed: Yes Acetaminophen (Acetaminophen) 500 Mg Tablet, 1,000 MG PO Q8H PRN for PAIN-MILD (1-4) Prescribed by: RAJANI HERNANDEZ on 05/11/21 0937 Cephalexin (Cephalexin) 500 Mg Tablet, 500 MG PO QID Prescribed by: WILLIAM IRWIN on 05/07/21 0850 Docusate Sodium (Colace) 100 Mg Capsule, 100 MG PO BID Prescribed by: RAJANI HERNANDEZ on 05/11/21 0937 Oxycodone HCl (Oxycodone HCl) 5 Mg Tablet, 5 MG PO Q4H PRN for severe pain Prescribed by: RAJANI HERNANDEZ on 05/11/21 0938 Vit/Iron Fumarate/FA ( Tablet) 1 Each Tablet, 1 EACH PO DAILY, (Reported) Entered as Reported by: EDILBERTO RICHARDSON on 04/15/21 0940 Promethazine HCl (Promethazine Tablet) 25 Mg Tablet, 25 MG PO Q6H PRN for NAUSEA/VOMITING Prescribed by: RAJANI HERNANDEZ on 05/11/21 0937 Tamsulosin HCl (Flomax) 0.4 Mg Cap, 0.4 MG PO DAILY@0900 Prescribed by: RAJANI HERNANDEZ on 05/11/21 0937 OB - History Hx of Present Care: Yes Ultrasounds: Normal mid trimester US Obstetrical Complications: None Medical Complications: None Delivery History Hx Blood Disorders: No Adverse Rxn to Tranfusion: No Patient Past Medical History Nephrolitiasis Social History/Family History 2nd Hand Smoke Exposure: No Immunizations Hepatitis A: Yes Hepatitis B: Yes Tetanus Booster (TDap): Less than 5yrs OB - Admission Exam Physical Exam HEENT: NCAT Heart: Rhythm Normal Lungs: Clear Abdomen: Gravid Extremities: Normal Reflexes: Normal Cervical Dilatation: 9cm Effacement: 100% Station: 0 Membranes: Intact Heart Rate: 130's Accelerations: Accelerations Present Decelerations: No Decelerations Short Term Variability: Present Claims Adjuster Variability: Average (6-25) Contractions on Admission: < 5 Minutes Apart Intensity: Firm Labs Laboratory Tests Test 07/17/21 08:15 Range/Units White Blood Count 14.1 H 4.3-11.0 10^3/uL Red Blood Count 4.01 3.80-5.11 10^6/uL Hemoglobin 11.2 L 11.5-16.0 g/dL Hematocrit 35 35-52 % Mean Corpuscular Volume 86 80-99 fL Mean Corpuscular Hemoglobin 28 25-34 pg Mean Corpuscular Hemoglobin Concent 33 32-36 g/dL Red Cell Distribution Width 13.1 10.0-14.5 % Platelet Count 238 130-400 10^3/uL Mean Platelet Volume 12.8 H 9.0-12.2 fL Immature Granulocyte % (Auto) 0 % Neutrophils (%) (Auto) 75 42-75 % Lymphocytes (%) (Auto) 17 12-44 % Monocytes (%) (Auto) 6 0-12 % Eosinophils (%) (Auto) 1 0-10 % Basophils (%) (Auto) 0 0-10 % Neutrophils # (Auto) 10.5 H 1.8-7.8 10^3/uL Lymphocytes # (Auto) 2.4 1.0-4.0 10^3/uL Monocytes # (Auto) 0.9 0.0-1.0 10^3/uL Eosinophils # (Auto) 0.1 0.0-0.3 10^3/uL Basophils # (Auto) 0.1 0.0-0.1 10^3/uL Immature Granulocyte # (Auto) 0.1 0.0-0.1 10^3/uL Neutrophils % (Manual) 70 % Lymphocytes % (Manual) 25 % Monocytes % (Manual) 5 % Blood Morphology Comment NORMAL Urine Color YELLOW Urine Clarity CLEAR Urine pH 8.0 5-9 Urine Specific [place] 1.020 1.016-1.022 Urine Protein NEGATIVE NEGATIVE Urine Glucose (UA) NEGATIVE NEGATIVE Urine Ketones NEGATIVE NEGATIVE Urine Nitrite NEGATIVE NEGATIVE Urine Bilirubin NEGATIVE NEGATIVE Urine Urobilinogen 0.2 < = 1.0 MG/DL Urine Leukocyte Esterase TRACE H NEGATIVE Urine RBC (Auto) 2+ H NEGATIVE Urine RBC 5-10 H /HPF Urine WBC 5-10 H /HPF Urine Squamous Epithelial Cells 10-25 H /HPF Urine Crystals PRESENT H /LPF Urine Amorphous Sediment MOD [place] PHOSPHATE H /LPF Urine Bacteria MODERATE H /HPF Urine Casts NONE /LPF Urine Mucus SMALL H /LPF Urine Culture Indicated YES OB - Assessment/Plan/Diagnosis Assessment Assessment: active labor Admission Dx 31 yo @ 39 weeks Active labor GBS neg Admission Status: Inpatient Order (span 2 midnights) Reason for Inpatient Admission: Active labor at 39 weeks Plan Plan: Expectant Management POLLY ROSALES DO Jul 17, 2021 9:47 am
--- NOTE | 2021-07-17 09:51 | OB Labor & Delivery Record ---
L&D History Date of Service Date of Service: Jul 17, 2021 History Expected Date of Delivery: Jul 19, 2021 Gestational Age in Weeks: 39 Hx : 6 Hx Para: 4 Complications Events: Routine care Operative Indications (Cesarea: N/A-Vaginal Delivery Intrapartal Events: None L&D Stage1 Stage One Onset of Labor - Date: Jul 17, 2021 Monitors and Tracing Monitor Mode: External Monitor Accelerations: Uniform Monitor Decelerations: Variable Station: -1 [employer] Consultant Variability: Moderate (11-25) Short Term Variability: Present Presentation: Vertex Signs of Distress by FHT Signs of Distress variable decels with contractions noted Rupture of Membranes Spontaneous Ruture of Membrane: Yes Amniotic Membrane Rupture Time: 08:05 Amniotic Membrane Fluid Desc.: Clear Vaginal Bleeding Description: Normal Show Progress/Notes Patient admitted 8-9 cm dilatated. She progressed rapidly to complete and 0 station. When she began to push with no analgesia L&D Stage2 Stage Two Stage II Date: Jul 17, 2021 Monitors and Tracing Monitor Mode: External Monitor Decelerations: Variable Nursing Home Variability: Average (6-10) Position: Right Occiput Posterior Presentation: Vertex Cord Descript/Complications Cord Vessel Description: 3 Vessels Delivery Type Delivery Method: Spontaneous Vaginal Anterior Shoulder: Right Episiotomy/Perineal Laceration Laceraction(s)/Extensions: Yes Episiotomy Description: Vaginal Extension/lac, 1st degree Degree (describe repair) 1st degree laceration repaired using 3-0 rapide in usual fashion. Condition of Delivery 1 minute Comment: 8 5 minute Comment: 9 Notes Live male infant weight pending Condition of Condition of Infant: Living Exam: No Observed Abnormalities Resuscitation Resuscitation: N/A - Spontaneous Resp L&D Stage3 Stage Three Stage III Date: Jul 17, 2021 Pictocin Pitocin Administration Comment: 30 mu wide open after delivery of placenta Placenta Delivery Placenta Delivery: Spontaneous Delivery Summary Summary Estimated blood loss (mL): 250 Attending at delivery: Polly Rosales DO Condition of Delivery Examined: Cervix Examined, Uterus Explored Post Hemorrhage: No Condition of Mother stable Condition of (s) stable POLLY ROSALES DO Jul 17, 2021 9:51 am
[2021-07-17] MEDS: IBUPROFEN 600 MG (MOTRIN) TAB PO SCH ×3 (11:44→23:58)
[2021-07-17] MEDS ORDERED: CATHETER FLUSH 10 ML SYR IV SCH ×2 (14:00)
[2021-07-17] MEDS ORDERED: DOCUSATE SODIUM 100 MG (COLACE) CAP PO SCH (21:00)
[2021-07-18 00:51] VITALS: BP 114/55
[2021-07-18 05:54] LABS: BASOPHILS % (AUTO) 0 % (0-10); EOSINOPHILS # (AUTO) 0.1 10^3/uL (0.0-0.3); EOSINOPHILS % (AUTO) 1 % (0-10); HEMATOCRIT 31 % (35-52); LYMPHOCYTES # (AUTO) 1.9 10^3/uL (1.0-4.0); LYMPHOCYTES % (AUTO) 17 % (12-44); MEAN CORPUSCULAR HEMOGLOBIN 28 pg (25-34); MEAN CORPUSCULAR HGB CONC 32 g/dL (32-36); MEAN CORPUSCULAR VOLUME 87 fL (80-99); MEAN PLATELET VOLUME 12.5 fL (9.0-12.2); MONOCYTES # (AUTO) 0.6 10^3/uL (0.0-1.0); MONOCYTES % (AUTO) 6 % (0-12); NEUTROPHILS # (AUTO) 8.2 10^3/uL (1.8-7.8); NEUTROPHILS % (AUTO) 75 % (42-75); PLATELET COUNT 202 10^3/uL (130-400); WHITE BLOOD COUNT 10.9 10^3/uL (4.3-11.0)
[2021-07-18 06:10] VITALS: BP 119/78
[2021-07-18] MEDS: IBUPROFEN 600 MG (MOTRIN) TAB PO SCH (06:19)
[2021-07-18] MEDS ORDERED: FERROUS SULF 325 MG (IRON) TAB PO SCH (09:00)
[2021-07-18] MEDS ORDERED: ACHD5005 PO (09:01)
[2021-07-18] MEDS ORDERED: DOCU-143 PO (09:01)
[2021-07-18] MEDS ORDERED: IBUP-844 PO (09:01)
--- NOTE | 2021-07-18 09:03 | Discharge Inst-Women's Service ---
Discharge Inst-Women's Serv Depart Medication/Instructions New, Converted or Re-Newed RX: Call to Patients Pharmacy Consults/Follow Up Additional Follow Up: Yes Orders/Referrals 6wk PP appt Activity Activity: Activity as Tolerated Driving Instructions: No Driving for 1 Week NO SMOKING: NO SMOKING Nothing Inside Vagina: No Douching, No [place]cher, No Tampons Diet Discharge Diet: No Restrictions Symptoms to Report to : Pain Increased, Fever Over 101 Degrees F, Vaginal Bleeding Increase For Any Problems or Questions: Contact Your Physician JOSE FLORES APRN Jul 18, 2021 09:03
--- NOTE | 2021-07-18 09:04 | Postpartum Progress Note ---
Note Note Day # 1 Subjective: Patient is without complaints. Ambulating, voiding. Tolerating a regular diet without nausea or vomiting. Normal lochia. Pain is well controlled with oral pain medications. Objective: Physical Exam: General - Alert and oriented, no apparent distress Abdomen - Soft, appropriately tender to palpation, non-distended, fundus firm at umbilicus Extremities - no edema, negative Gina's bilaterally Assessment: Post- day # 1, status post spontaneous vaginal delivery. Recovering well, hemodynamically stable Acute blood loss anemia Plan: Routine care. Encourage breast feeding. Encourage ambulation. Ferrous sulfate supplementation. Plan for discharge today Vitals - Labs Vital Signs - I&O Vital Signs Date Time Temp Pulse Resp B/P (MAP) Pulse Ox O2 Delivery O2 Flow Rate FiO2 07/18/21 06:10 35.8 66 18 119/78 (92) 97 Room Air 07/18/21 00:51 35.8 61 18 114/55 (74) 98 Room Air 07/17/21 20:50 35.9 76 18 114/52 (72) 98 Room Air 07/17/21 15:47 37.0 71 18 131/68 (89) 96 Room Air 07/17/21 11:42 75 18 115/61 (79) Room Air 07/17/21 11:27 74 18 119/62 (81) Room Air 07/17/21 11:12 72 18 129/65 (86) Room Air 07/17/21 10:57 62 18 130/71 (90) Room Air 07/17/21 10:42 71 18 126/68 (87) Room Air 07/17/21 10:27 67 18 122/65 (84) Room Air 07/17/21 10:12 78 18 125/64 (84) Room Air 07/17/21 09:57 77 18 122/58 (79) Room Air 07/17/21 09:42 80 18 126/60 (82) Room Air 07/17/21 09:28 35.6 77 18 130/78 (95) Room Air 07/17/21 09:13 36.2 90 18 141/63 (89) Room Air 07/17/21 09:06 I & O 07/18/21 07:00 Intake Total 1300 ml Balance 1300 ml Labs Laboratory Tests 07/18/21 05:15: White Blood Count 10.9, Red Blood Count 3.62L, Hemoglobin 10.0L, Hematocrit 31L, Mean Corpuscular Volume 87, Mean Corpuscular Hemoglobin 28, Mean Corpuscular Hemoglobin Concent 32, Red Cell Distribution Width 13.2, Platelet Count 202, M jose armando Platelet Volume 12.5H, Immature Granulocyte % (Auto) 1, Neutrophils (%) (Auto) 75, Lymphocytes (%) (Auto) 17, Monocytes (%) (Auto) 6, Eosinophils (%) (Auto) 1, Basophils (%) (Auto) 0, Neutrophils # (Auto) 8.2H, Lymphocytes # (Auto) 1.9, Monocytes # (Auto) 0.6, Eosinophils # (Auto) 0.1, Basophils # (Auto) 0.0, Immature Granulocyte # (Auto) 0.1 JOSE FLORES APRN Jul 18, 2021 09:04
[2021-07-18 10:15] VITALS: BP 130/73
== END 2021-07-18 11:45 | disposition home or self-care (01) | DRG 806 ==
LOC: WSo 07:56 → LDRP 07:57 → WSo 08:09 → LDRP 08:09
PROVIDERS: ADMIT Obstetrics & Gynecology; ATTEND Obstetrics & Gynecology
PROC: 10E0XZZ Delivery of Products of Conception, External Approach (ICD-10-PCS; principal; 2021-07-17)
PROC: 0HQ9XZZ Repair Perineum Skin, External Approach (ICD-10-PCS; 2021-07-17)
DX: O70.0 First degree perineal laceration during delivery (principal); D62 Acute posthemorrhagic anemia; Z37.0 Single live birth; Z3A.39 39 weeks gestation of pregnancy; O90.81 Anemia of the puerperium; O76 Abnormality in fetal heart rate and rhythm complicating labor and delivery
CPT/HCPCS: 36415; 81000; 85007; 85025; 85027; 86850; 86900; 86901; 87088; 99212